=== PATIENT | male | born 1950 | race Caucasian/White ===

== ENCOUNTER 2017-01-12 03:29 | Emergency (ER) | payer MEDICARE, OTHER ==
[2017-01-12 03:43] VITALS: RESP 18
[2017-01-12] MEDS ORDERED: PANTOPRAZOLE 40 MG/10 ML VIAL IVP STA (03:54)
[2017-01-12] MEDS ORDERED: SODIUM CHLORIDE 0.9% 1,000 ML IV STA (03:54)
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
[2017-01-12 04:22] LABS: Basophils % (A) 1 %; CH 33.9; CHCM 34.1; Eosinophils # (A) 0.2 k/uL (0-0.7); Eosinophils % (A) 5 %; HCT 43.4 % (39.0-53.0); HDW 2.69; HGB 14.4 gm/dL (13.0-17.5); Luc % (Auto) 2; Lymphocytes % (A) 23 %; MCH 33.1 pg (25.0-35.0); MCHC 33.1 g/dL (31.0-37.0); MCV 99.9 fL (80.0-100.0); Macrocytosis Slight; Mean Platelet Volume 7.5; Monocytes # (A) 0.2 k/uL (0-1.0); Monocytes % (A) 5 %; Neutrophils # (A) 2.9 k/uL (1.3-7.7); Neutrophils % (A) 65 %; RBC 4.34 m/uL (4.30-5.90); RDW 14.4 % (11.5-15.5); WBC 4.5 k/uL (3.8-10.6); WBC (Perox) 4.51
[2017-01-12 04:32] LABS: Calcium 8.9 mg/dL (8.4-10.2); Potassium 5.7 mmol/L (3.5-5.1); Total Bilirubin 0.9 mg/dL (0.2-1.3); Total Protein 7.1 g/dL (6.3-8.2)
[2017-01-12 04:34] LABS: Partial Thromboplastin Time 24.1 sec (22.0-30.0); Prothrombin Time 10.4 sec (9.0-12.0)
[2017-01-12 04:41] LABS: Creatine Kinase 62 U/L (55-170)
--- NOTE | 2017-01-12 04:43 | XR ---
EXAMINATION TYPE: XR chest 1V portable DATE OF EXAM: 01/12/2017 4:27 AM COMPARISON: NONE HISTORY: History of GI bleed. TECHNIQUE: Single frontal view of the chest is obtained. FINDINGS: There is no focal air space opacity, pleural effusion, or pneumothorax seen. There is sugg estion of mild cardiomegaly. The osseous structures are intact. IMPRESSION: 1. No active lung infiltrates. 2. Cardiomegaly.
[2017-01-12 04:55] LABS: Creatine Kinase MB 1.9 ng/mL (0.0-2.4); Troponin I <0.012 ng/mL (0.000-0.034)
[2017-01-12 05:24] VITALS: BP 132/82; PULSE 60; TEMP 97.7
== END 2017-01-12 05:24 | disposition home or self-care (01) ==
LOC: EC 03:29
DX: R19.5 Other fecal abnormalities (principal); K21.9 Gastro-esophageal reflux disease without esophagitis; E07.9 Disorder of thyroid, unspecified; M10.9 Gout, unspecified; N40.0 Benign prostatic hyperplasia without lower urinary tract symptoms; F31.9 Bipolar disorder, unspecified; F41.9 Anxiety disorder, unspecified; R29.90 Unspecified symptoms and signs involving the nervous system; E66.9 Obesity, unspecified; Z98.84 Bariatric surgery status; Z79.899 Other long term (current) drug therapy
CPT/HCPCS: 36415; 93005; 80053; 82550; 82553; 84484; 85025; 85610; 85730; 82272; 71010; 99285; 96374; 96361; C9113

== ENCOUNTER 2017-03-13 18:27 | Emergency (ER) | payer MEDICARE, OTHER ==
[2017-03-13 18:34] VITALS: RESP 18
[2017-03-13] MEDS ORDERED: MORPHINE SULFATE 10 MG/ML SYRINGE IVP STA (19:13)
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
--- NOTE | 2017-03-13 19:46 | XR ---
EXAMINATION TYPE: XR knee limited LT DATE OF EXAM: 03/13/2017 7:35 PM COMPARISON: 08/31/2014 HISTORY: Pain TECHNIQUE: 2 views FINDINGS: There is a right knee prosthesis. There appears to be a supracondylar or transcondylar frac ture of the distal femur at the prosthesis. Exam is limited significantly by the positioning. IMPRESSION: There is a transcondylar fracture of the distal femur that is new and acute compared to l ast exam..
[2017-03-13] MEDS ORDERED: MORPHINE SULFATE 10 MG/ML SYRINGE IM STA (21:35)
[2017-03-13] MEDS ORDERED: HYDROmorphone 1 MG/ML 1 ML SYRINGE IM STA (23:25)
[2017-03-13 23:27] VITALS: BP 188/82; PULSE 77; TEMP 98.5
== END 2017-03-13 23:39 | disposition other institution (70) ==
LOC: EC 18:27
DX: S72.402A Unspecified fracture of lower end of left femur, initial encounter for closed fracture (principal); T84.89XA Other specified complication of internal orthopedic prosthetic devices, implants and grafts, initial encounter; I48.91 Unspecified atrial fibrillation; K21.9 Gastro-esophageal reflux disease without esophagitis; M19.90 Unspecified osteoarthritis, unspecified site; E07.9 Disorder of thyroid, unspecified; N40.0 Benign prostatic hyperplasia without lower urinary tract symptoms; M10.9 Gout, unspecified; F31.9 Bipolar disorder, unspecified; F41.9 Anxiety disorder, unspecified; Z79.899 Other long term (current) drug therapy; Z98.890 Other specified postprocedural states; W05.0XXA Fall from non-moving wheelchair, initial encounter
CPT/HCPCS: 99285; 96374; 96372 ×2; 73560; J2270; J1170

== ENCOUNTER 2017-03-20 12:44 | Emergency (ER) | payer MEDICARE, OTHER ==
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
[2017-03-20 15:42] LABS: Basophils % (A) 1 %; CH 33.2; CHCM 34.4; Eosinophils # (A) 0.3 k/uL (0-0.7); Eosinophils % (A) 6 %; HCT 31.9 % (39.0-53.0); HDW 3.33; HGB 10.8 gm/dL (13.0-17.5); Luc # (Auto) 0.09; Luc % (Auto) 2; Lymphocytes # (A) 0.7 k/uL (1.0-4.8); Lymphocytes % (A) 14 %; MCH 32.8 pg (25.0-35.0); MCHC 33.8 g/dL (31.0-37.0); MCV 97.2 fL (80.0-100.0); Mean Platelet Volume 7.6; Monocytes # (A) 0.4 k/uL (0-1.0); Monocytes % (A) 7 %; Neutrophils # (A) 3.3 k/uL (1.3-7.7); Neutrophils % (A) 70 %; RBC 3.29 m/uL (4.30-5.90); RDW 14.6 % (11.5-15.5); WBC 4.7 k/uL (3.8-10.6); WBC (Perox) 4.96
[2017-03-20 15:48] LABS: Calcium 8.8 mg/dL (8.4-10.2); Potassium 4.6 mmol/L (3.5-5.1); Total Bilirubin 1.1 mg/dL (0.2-1.3); Total Protein 6.8 g/dL (6.3-8.2)
[2017-03-20] MEDS ORDERED: HYDROmorphone 1 MG/ML 1 ML SYRINGE IVP STA (15:56)
[2017-03-20 17:10] VITALS: BP 123/65; PULSE 77; RESP 18; TEMP 96.9
== END 2017-03-20 17:07 | disposition short-term general hospital (02) ==
LOC: EC 12:44
DX: M25.552 Pain in left hip (principal); G89.29 Other chronic pain; M97.12XD Periprosthetic fracture around internal prosthetic left knee joint, subsequent encounter; E07.9 Disorder of thyroid, unspecified; M10.9 Gout, unspecified; F31.9 Bipolar disorder, unspecified; K21.9 Gastro-esophageal reflux disease without esophagitis; Z79.899 Other long term (current) drug therapy
CPT/HCPCS: 99285; 96374; 36415; 80053; 85025; 87040; J1170

== ENCOUNTER → 2017-04-20 | Outpatient (CLI) | payer MEDICARE, OTHER | END | disposition home or self-care (01) | LOC: RADCTMAIN 12:26 | PROVIDERS: ATTEND Otolaryngology | DX: Z01.812 Encounter for preprocedural laboratory examination (principal); M54.2 Cervicalgia; J38.01 Paralysis of vocal cords and larynx, unilateral | CPT/HCPCS: 82565; 84520 ==

== ENCOUNTER → 2017-05-01 | Outpatient (CLI) | payer MEDICARE, OTHER | END | disposition home or self-care (01) | LOC: RADCTMAIN 11:04 | PROVIDERS: ATTEND Otolaryngology | DX: Z53.9 Procedure and treatment not carried out, unspecified reason (principal) | CPT/HCPCS: 82565; 84520 ==

== ENCOUNTER → 2017-05-23 | Outpatient (CLI) | payer MEDICARE, OTHER ==
[2017-05-23 10:12] LABS: Anisocytosis Slight; CH 32.7; CHCM 33.3; HCT 39.4 % (39.0-53.0); HDW 2.83; MCH 32.6 pg (25.0-35.0); MCV 98.7 fL (80.0-100.0); Macrocytosis Slight; Mean Platelet Volume 7.3; RDW 16.4 % (11.5-15.5); WBC 4.3 k/uL (3.8-10.6)
[2017-05-23 10:28] LABS: Calcium 8.7 mg/dL (8.4-10.2); Phosphorous 3.9 mg/dL (2.5-4.5); Total Bilirubin 0.7 mg/dL (0.2-1.3); Total Protein 6.9 g/dL (6.3-8.2)
[2017-05-23 10:37] LABS: Appearance,Urine Clear (Clear); Bilirubin,Urine Negative (Negative); Glucose,Urine (UA) Negative (Negative); Ketones,Urine Negative (Negative); Leukocyte Esterase,Urine Negative (Negative); Nitrite,Urine Negative (Negative); Protein,Urine Trace (Negative); Specific Gravity,Urine 1.008 (1.001-1.035); UA Billing (MACRO vs. MICRO) CHEM; Urobilinogen,Urine <2.0 mg/dL (<2.0)
== END | disposition home or self-care (01) ==
LOC: LABWHC1 09:38
PROVIDERS: ATTEND Internal Medicine Nephrology
DX: D64.9 Anemia, unspecified (principal); N39.0 Urinary tract infection, site not specified; N18.3 Chronic kidney disease, stage 3 (moderate); E83.39 Other disorders of phosphorus metabolism
CPT/HCPCS: 36415; 80053; 81003; 84100; 85027

== ENCOUNTER → 2017-06-07 | Outpatient (CLI) | payer MEDICARE, OTHER ==
--- NOTE | 2017-06-07 15:37 | US ---
EXAMINATION TYPE: US kidneys/renal and bladder DATE OF EXAM: 06/07/2017 COMPARISON: CT abdomen and pelvis March 21, 2015 CLINICAL HISTORY: N18.3 CKD. CKD, abnormal renal function EXAM MEASUREMENTS: Right Kidney: 10.7 x 5.2 x 4.3 cm Left Kidney: 10.9 x 5.3 x 5.4 cm Severely, morbidly obese pt, difficult to visualize Right Kidney: Limited visualization/ No hydro could be appreciated Left Kidney: No evidence of hydro, appeared wnl Bladder: Pt unable to hold urine in bladder, voided just prior to exam, unable to evaluate Exam suboptimal secondary to patient's large body habitus. Limited images right kidney show no gross hydronephrosis. Left kidney is better utilized without hydronephrosis or concerning mass. Bladder can not be evaluated as is collapsed, patient voided just prior to ultrasound. IMPRESSION: Suboptimal study without gross hydronephrosis identified bilaterally.
== END ==
LOC: RADUSWWP 15:05
PROVIDERS: ATTEND Internal Medicine
DX: N18.3 Chronic kidney disease, stage 3 (moderate) (principal)
CPT/HCPCS: 76770

== ENCOUNTER → 2017-07-13 | Outpatient (CLI) | payer MEDICARE, OTHER ==
[2017-07-13 09:33] LABS: Appearance,Urine Clear (Clear); Bilirubin,Urine Negative (Negative); Glucose,Urine (UA) Negative (Negative); Ketones,Urine Negative (Negative); Leukocyte Esterase,Urine Negative (Negative); Nitrite,Urine Negative (Negative); Protein,Urine Trace (Negative); Specific Gravity,Urine 1.006 (1.001-1.035); UA Billing (MACRO vs. MICRO) CHEM; Urobilinogen,Urine <2.0 mg/dL (<2.0)
[2017-07-13 09:56] LABS: CH 32.7; CHCM 33.1; HCT 41.8 % (39.0-53.0); HDW 2.88; HGB 13.8 gm/dL (13.0-17.5); MCH 32.8 pg (25.0-35.0); MCV 99.2 fL (80.0-100.0); Macrocytosis Slight; Mean Platelet Volume 7.5; RBC 4.22 m/uL (4.30-5.90); RDW 15.5 % (11.5-15.5); WBC 4.5 k/uL (3.8-10.6)
[2017-07-13 10:24] LABS: Calcium 8.8 mg/dL (8.4-10.2); Magnesium 1.7 mg/dL (1.6-2.3); Phosphorous 4.2 mg/dL (2.5-4.5); Potassium 5.1 mmol/L (3.5-5.1); Total Bilirubin 0.6 mg/dL (0.2-1.3); Total Protein 6.6 g/dL (6.3-8.2); Uric Acid 4.7 mg/dL (3.5-8.5)
[2017-07-13 10:33] LABS: % Iron Saturation 34.2 % (20-50)
== END | disposition home or self-care (01) ==
LOC: LABWHC1 08:53
PROVIDERS: ATTEND Internal Medicine
DX: N18.3 Chronic kidney disease, stage 3 (moderate) (principal); D64.9 Anemia, unspecified; N39.0 Urinary tract infection, site not specified; E21.3 Hyperparathyroidism, unspecified; E55.9 Vitamin D deficiency, unspecified; M10.9 Gout, unspecified; R80.9 Proteinuria, unspecified
CPT/HCPCS: 36415; 80053; 81003; 82306; 82570; 82728; 83540; 83550; 83735; 83970; 84100; 84156; 84550; 85027

== ENCOUNTER 2017-08-03 19:00 | Emergency (ER) | payer MEDICARE, OTHER ==
[2017-08-03] MEDS ORDERED: HYDROcodone/APAP 5-325MG 1 EACH TAB PO STA (19:20)
--- NOTE | 2017-08-03 19:55 | XR ---
EXAMINATION TYPE: XR ankle complete bilateral DATE OF EXAM: 08/03/2017 COMPARISON: NONE HISTORY: Pain TECHNIQUE: 6 views FINDINGS: Ankle mortise is intact. I see no fracture nor dislocation. Joint spaces are fairly normal. There are calcaneal spurs bilaterally. IMPRESSION: No acute abnormality of the left and right ankle.
--- NOTE | 2017-08-03 19:55 | XR ---
EXAMINATION TYPE: XR foot complete bilateral DATE OF EXAM: 08/03/2017 COMPARISON: NONE HISTORY: Foot pain TECHNIQUE: 6 views FINDINGS: Metatarsals are intact. There is multiple bilateral hammertoe deformity. There are mild sanam ntar and Achilles calcaneal spurs. There is bilateral soft tissue swelling of the forefoot. I see no fracture. IMPRESSION: Soft tissue swelling. Multiple hammer toe deformity. No fracture seen.
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
[2017-08-03] MEDS ORDERED: MORPHINE SULFATE 10 MG/ML SYRINGE IM STA (20:13)
--- NOTE | 2017-08-03 20:50 | US ---
EXAMINATION TYPE: US venous doppler duplex LE LT DATE OF EXAM: 08/03/2017 8:36 PM COMPARISON: NONE CLINICAL HISTORY: Pain. Pain and edema left leg. Injury left lower leg. Bruising left lower leg and f oot SIDE PERFORMED: left TECHNIQUE: The lower extremity deep venous system is examined utilizing real time linear array sonog jose with graded compression, doppler sonography and color-flow sonography. VESSELS IMAGED: External Iliac Vein (EIV) Common Femoral Vein Deep Femoral Vein Greater Saphenous Vein * Femoral Vein Popliteal Vein Small Saphenous Vein * Proximal Calf Veins (* superficial vessels) Left Leg: No evidence of DVT. Complex anechoic area left mid calf within area of bruising = 3.6 x 0. 6 x 1.9cm IMPRESSION: No evidence of deep venous thrombosis. Complex elongated subcutaneous fluid collection could be area of hematoma or seroma in the area of br uising in the mid calf.
[2017-08-03 21:30] VITALS: BP 122/60; PULSE 71; RESP 18; TEMP 98.2
== END 2017-08-03 21:29 | disposition home or self-care (01) ==
LOC: EC 19:00
DX: S80.12XA Contusion of left lower leg, initial encounter (principal); M79.89 Other specified soft tissue disorders; E07.9 Disorder of thyroid, unspecified; K21.9 Gastro-esophageal reflux disease without esophagitis; M10.9 Gout, unspecified; N40.0 Benign prostatic hyperplasia without lower urinary tract symptoms; F31.9 Bipolar disorder, unspecified; F41.9 Anxiety disorder, unspecified; E66.9 Obesity, unspecified; Z96.653 Presence of artificial knee joint, bilateral; Z68.43 Body mass index [BMI] 50.0-59.9, adult; Z79.899 Other long term (current) drug therapy; W01.198A Fall on same level from slipping, tripping and stumbling with subsequent striking against other object, initial encounter; Y93.89 Activity, other specified
CPT/HCPCS: 99284; 96372; 73610; 73630; 93971; J2270

== ENCOUNTER → 2017-08-29 | Outpatient (CLI) | payer MEDICARE, OTHER ==
--- NOTE | 2017-08-29 14:58 | XR ---
Abdomen HISTORY: Pain Frontal view of the abdomen submitted on 3 images No recent exam available for correlation, correlation to CT abdomen pelvis dated 03/21/2015 Postop change noted to the left hip. Metallic foreign bodies are also noted at the left hip. Vascular calcifications are noted within the pelvis. There is retained fecal debris present within the colon. Question some small bowel loop distention, colonic distention. No pneumoperitoneum. IMPRESSION: Exam is somewhat limited by patient body habitus. Correlate for possible fecal stasis, jose guadalupe wel obstruction. A Yellow message has been communicated to Olga Owens MD via the [employer] system on 08/29/2017 2:55 PM, Message ID [phone].
== END ==
LOC: RADXRMAIN 13:40
PROVIDERS: ATTEND Internal Medicine
DX: R10.9 Unspecified abdominal pain (principal)
CPT/HCPCS: 74000

== ENCOUNTER 2017-09-02 21:06 | Emergency (ER) | payer MEDICARE, OTHER ==
[2017-09-02 21:39] VITALS: RESP 18
[2017-09-02] MEDS ORDERED: SODIUM CHLORIDE 0.9% 500 ML IV STA ×2 (21:55→23:33)
[2017-09-02] MEDS ORDERED: MORPHINE SULFATE 4 MG/ML SYRINGE IV STA (21:55)
[2017-09-02] MEDS ORDERED: SODIUM CHLORIDE 0.9% 1,000 ML IV STA (21:55)
[2017-09-02] MEDS ORDERED: PANTOPRAZOLE 40 MG/10 ML VIAL IVP STA (21:55)
[2017-09-02] MEDS ORDERED: ONDANSETRON 4 MG/2 ML VIAL IVP STA (21:55)
[2017-09-02] MEDS ORDERED: RX INFO: IV CONTRAST WAS GIVEN 1 EACH MISC MISCELLANE PRN (21:56)
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
[2017-09-02 22:21] LABS: Basophils # (A) 0.1 k/uL (0-0.2); Basophils % (A) 1 %; CH 33.6; CHCM 32.8; Eosinophils # (A) 0.4 k/uL (0-0.7); Eosinophils % (A) 6 %; HCT 40.9 % (39.0-53.0); HGB 13.3 gm/dL (13.0-17.5); Luc # (Auto) 0.13; Luc % (Auto) 2; Lymphocytes % (A) 13 %; MCH 33.6 pg (25.0-35.0); MCHC 32.6 g/dL (31.0-37.0); Macrocytosis Slight; Mean Platelet Volume 7.6; Monocytes # (A) 0.3 k/uL (0-1.0); Monocytes % (A) 5 %; Neutrophils # (A) 5.2 k/uL (1.3-7.7); Neutrophils % (A) 74 %; RBC 3.97 m/uL (4.30-5.90); RDW 14.5 % (11.5-15.5); WBC 7.1 k/uL (3.8-10.6); WBC (Perox) 7.07
[2017-09-02 22:30] LABS: Partial Thromboplastin Time 23.7 sec (22.0-30.0); Prothrombin Time 9.8 sec (9.0-12.0)
[2017-09-02 22:37] LABS: Calcium 9.2 mg/dL (8.4-10.2); Creatine Kinase 34 U/L (55-170); Total Bilirubin 0.6 mg/dL (0.2-1.3); Total Protein 6.7 g/dL (6.3-8.2)
[2017-09-02 22:49] LABS: Creatine Kinase MB 0.6 ng/mL (0.0-2.4); Troponin I <0.012 ng/mL (0.000-0.034)
[2017-09-02 22:58] LABS: Appearance,Urine Clear (Clear); Bilirubin,Urine Negative (Negative); Glucose,Urine (UA) Negative (Negative); Ketones,Urine Negative (Negative); Leukocyte Esterase,Urine Negative (Negative); Mucus,Urine Rare /hpf; Nitrite,Urine Negative (Negative); Particle Count 732; Protein,Urine 1+ (Negative); RBC,Urine 1 /hpf (0-5); Specific Gravity,Urine 1.011 (1.001-1.035); UA Billing (MACRO vs. MICRO) MICRO; Urobilinogen,Urine <2.0 mg/dL (<2.0); WBC,Urine 1 /hpf (0-5)
--- NOTE | 2017-09-02 23:32 | CT ---
EXAMINATION TYPE: CT abdomen pelvis w con DATE OF EXAM: 09/02/2017 COMPARISON: 03/21/2015 HISTORY: Abd pain CT DLP: 4077.00 mGycm Automated exposure control for dose reduction was used. TECHNIQUE: Helical acquisition of images was performed from the lung bases through the pelvis. CONTRAST: Performed without Oral Contrast and with IV Contrast, patient injected with 80 mL of Visipaque 320. FINDINGS: There is small right pleural effusion. There is patchy infiltrate and atelectasis at the lung bases. This is worse on the right side. Heart is enlarged. There are clips at the gastric fundus. Liver shows no focal defect. Spleen appears normal. There is n o pancreatic mass. Bile ducts are not dilated. Kidneys show satisfactory contrast opacification. There is no hydronephrosis. There is no adrenal mas s. There is a 2 cm cortical cyst on the medial left kidney. There is a left hip prosthesis. There is metal artifact which obscures the detail in the pelvis. Blad jayy appears to distends smoothly. I see no pelvic mass. There is no intestinal wall thickening. I see no dilated loops. I see no bony destructive process. There is a small ventral hernia that contains b owel in the subcutaneous tissues over the lower midline abdomen. There is no sign of a bowel obstruct ion. There is atherosclerotic vascular calcification. IMPRESSION: THERE IS INCREASING INFILTRATE AND ATELECTASIS AT THE LUNG BASES COMPARED TO OLD EXAM. THERE IS INCRE ASED PLEURAL THICKENING. THERE IS A NEW SMALL RIGHT PLEURAL EFFUSION. SMALL VENTRAL HERNIA. THIS IS INCREASED COMPARED TO OLD EXAM. NO EVIDENCE OF A BOWEL OBSTRUCTION. THE RE IS CHOLECYSTECTOMY SINCE LAST EXAM. THERE IS CLEARING OF THE INTESTINAL ILEUS COMPARED TO OLD EXAM . GASTRIC SURGERY NOTED.
[2017-09-02] MEDS ORDERED: MAGNESIUM CITRATE 296 ML BOTTLE PO ONE (23:33)
[2017-09-02] MEDS ORDERED: SENNOSIDES-DOCUSATE SODIUM 1 EACH TAB PO STA (23:33)
[2017-09-02] MEDS ORDERED: GLYCERIN ADULT SUPPOSITORY 1 EACH RECTAL STA (23:33)
[2017-09-03 00:11] VITALS: BP 120/62; PULSE 62; TEMP 97.2
== END 2017-09-03 00:14 | disposition home or self-care (01) ==
LOC: EC 21:06
DX: K59.00 Constipation, unspecified (principal); R10.9 Unspecified abdominal pain; E07.9 Disorder of thyroid, unspecified; M19.90 Unspecified osteoarthritis, unspecified site; K21.9 Gastro-esophageal reflux disease without esophagitis; F41.9 Anxiety disorder, unspecified; F32.9 Major depressive disorder, single episode, unspecified; Z90.49 Acquired absence of other specified parts of digestive tract; Z98.84 Bariatric surgery status; Z79.899 Other long term (current) drug therapy
CPT/HCPCS: 99285; 96374 ×2; 96375 ×3; 96361 ×2; 99284; 36415; 80053; 82150; 82550; 82553; 83690; 84484; 85025; 85610; 85730; 81001; 87086; 74177; J2270; Q9967; J2405; C9113

== ENCOUNTER → 2017-10-16 | Outpatient (CLI) | payer MEDICARE ==
[2017-10-16 15:23] LABS: CH 32.5; HCT 42.4 % (39.0-53.0); HDW 2.74; HGB 13.5 gm/dL (13.0-17.5); MCH 32.5 pg (25.0-35.0); MCHC 31.8 g/dL (31.0-37.0); MCV 102.1 fL (80.0-100.0); Macrocytosis Slight; Mean Platelet Volume 7.7; RBC 4.15 m/uL (4.30-5.90); WBC 7.1 k/uL (3.8-10.6)
[2017-10-16 15:41] LABS: Calcium 9.3 mg/dL (8.4-10.2); Magnesium 2.4 mg/dL (1.6-2.3); Phosphorus 4.3 mg/dL (2.5-4.5); Uric Acid 4.7 mg/dL (3.5-8.5)
[2017-10-16 19:59] LABS: Iron Saturation 12.96 (15.00-50.00); Iron(FE) 28 ug/dL (65-175); Total Iron Binding Capacity 216 ug/dL (228-460)
[2017-10-16 20:44] LABS: ANA w/Reflex to Titer NEGATIVE (NEGATIVE)
[2017-10-17 11:26] LABS: Free Kappa Lt Chain Qnt, Serum 9.71 mg/dL (0.33-1.94)
[2017-10-17 14:09] LABS: C-ANCA <1:20 Titer (<1:20); P-ANCA <1:20 Titer (<1:20)
== END | disposition home or self-care (01) ==
LOC: LABWHC1 14:43
PROVIDERS: ATTEND Nurse Practitioner Family
DX: E21.3 Hyperparathyroidism, unspecified (principal); R80.9 Proteinuria, unspecified; N18.3 Chronic kidney disease, stage 3 (moderate); N39.0 Urinary tract infection, site not specified; D63.1 Anemia in chronic kidney disease; M10.9 Gout, unspecified
CPT/HCPCS: 36415; 80048; 82306; 82728; 83516; 83540; 83550; 83735; 83883; 83970; 84100; 84550; 85027; 86038; 86160; 86162; 86225; 86255; 86334

== ENCOUNTER → 2018-07-08 | Outpatient (CLI) | payer MEDICARE, OTHER ==
[2018-07-08 12:40] LABS: Appearance,Urine Clear (Clear); Bilirubin,Urine Negative (Negative); Blood,Urine Negative (Negative); Color,Urine Yellow; Glucose,Urine (UA) Negative (Negative); Ketones,Urine Negative (Negative); Leukocyte Esterase,Urine Negative (Negative); Nitrite,Urine Negative (Negative); Protein,Urine Trace (Negative); Specific Gravity,Urine 1.008 (1.001-1.035); Urobilinogen,Urine <2.0 mg/dL (<2.0)
[2018-07-08 12:41] LABS: HCT 42.5 % (39.0-53.0); HGB 13.8 gm/dL (13.0-17.5); MCHC 32.5 g/dL (31.0-37.0); MCV 95.5 fL (80.0-100.0); Platelet Count 190 k/uL (150-450); RBC 4.45 m/uL (4.30-5.90); RDW 15.3 % (11.5-15.5); WBC 5.2 k/uL (3.8-10.6)
[2018-07-08 12:54] LABS: Calcium 8.9 mg/dL (8.4-10.2); Magnesium 2.1 mg/dL (1.6-2.3); Phosphorus 3.3 mg/dL (2.5-4.5); Potassium 4.7 mmol/L (3.5-5.1); Uric Acid 4.4 mg/dL (3.5-8.5)
[2018-07-08 13:09] LABS: Creatinine,Urine Random 74.2 mg/dL
[2018-07-08 19:01] LABS: Iron Saturation 13.03 (15.00-50.00)
[2018-07-08 19:10] LABS: Parathyroid Hormone Intact 142.3 pg/mL (14.0-72.0); Vitamin D 25 Hydroxy 69.5 ng/mL (30.0-100.0)
[2018-07-08 21:02] LABS: Hemoglobin A1C 5.1 % (4.0-6.0)
== END | disposition home or self-care (01) ==
LOC: LABWHC1 11:31
PROVIDERS: ATTEND Nurse Practitioner Family
DX: E21.3 Hyperparathyroidism, unspecified (principal); D63.1 Anemia in chronic kidney disease; N18.3 Chronic kidney disease, stage 3 (moderate); R73.9 Hyperglycemia, unspecified; M10.9 Gout, unspecified; R80.9 Proteinuria, unspecified; N39.0 Urinary tract infection, site not specified
CPT/HCPCS: 36415; 80048; 81003; 82306; 82570; 82728; 83036; 83540; 83550; 83735; 83970; 84100; 84156; 84550; 85027

== ENCOUNTER → 2018-08-13 | Outpatient (CLI) | payer MEDICARE, OTHER ==
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
== END | disposition home or self-care (01) ==
LOC: RADXRMAIN 14:06
PROVIDERS: ATTEND Physical Medicine & Rehabilitation
DX: Z01.818 Encounter for other preprocedural examination (principal); Z98.890 Other specified postprocedural states; Z87.828 Personal history of other (healed) physical injury and trauma
CPT/HCPCS: 72170

== ENCOUNTER → 2018-08-21 | Outpatient (CLI) | payer MEDICARE, OTHER ==
--- NOTE | 2018-08-22 12:54 | CT ---
EXAMINATION TYPE: CT lumbar spine wo con DATE OF EXAM: 08/21/2018 COMPARISON: None HISTORY: spinal stenosis/lower back pain CT DLP: 1909.2 mGycm CONTRAST: None TECHNIQUE: CT of the lumbar spine is performed on a spiral scan at 3 mm thick sections. Reconstructed images are performed in the coronal and sagittal planes. FINDINGS: Degenerative disc changes are present throughout the visualized lower thoracic and lumbar s pine. Schmorl's node formation at superior endplate of L3 is present. Lower thoracic levels within th e [id number] and mild degenerative disc changes. No significant disc bulging or focal disc herniat ions are evident. T12-L1: No focal disc herniation or significant disc bulge is evident. No spinal canal stenosis or neural foraminal stenosis is present. L1-L2: No focal disc herniation or significant disc bulge is evident. No spinal canal stenosis or n eural foraminal stenosis is present L2-L3: Mild disc bulging is anterior thecal sac flattening. No AP spinal canal stenosis or neural for aminal stenosis is present. L3-L4: Mild disc bulge has anterior thecal sac flattening. No AP spinal canal stenosis or neural fora lobo stenosis is present. L4-L5: Mild disc bulging is anterior thecal sac flattening. Facet hypertrophy is present. No spinal c anal stenosis is present. Posterior lateral thecal sac compression with ligamentum flavum laxity is p resent. Right lateral recess narrowing is present. Correlate with the radicular symptoms. L5-S1: Endplate spurring has moderate anterior thecal sac compression. No AP spinal canal stenosis pr esent. Facet hypertrophy is present. Degenerative disc changes with loss of disc height are present. Vertebral alignment appears normal. IMPRESSION: 1. Degenerative disc changes throughout the visualized thoracic and lumbar spine. 2. Disc bulging and some facet hypertrophy is present L4-5 with narrowing without stenosis. 3. Additional milder endplate spurs and disc bulges are present without stenosis
== END | disposition home or self-care (01) ==
LOC: RADCTMAIN 19:07
PROVIDERS: ATTEND Physical Medicine & Rehabilitation
DX: M48.061 Spinal stenosis, lumbar region without neurogenic claudication (principal); M51.26 Other intervertebral disc displacement, lumbar region; M47.815 Spondylosis without myelopathy or radiculopathy, thoracolumbar region
CPT/HCPCS: 72131

== ENCOUNTER 2018-09-10 12:38 | Emergency (ER) | payer MEDICARE, OTHER ==
[2018-09-10 12:56] VITALS: RESP 20
[2018-09-10] MEDS ORDERED: HYDROcodone/APAP 10-325MG 1 EACH TAB PO ONE (13:11)
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
--- NOTE | 2018-09-10 14:20 | XR ---
EXAMINATION TYPE: XR Hip LT and AP Pelvis DATE OF EXAM: 09/10/2018 COMPARISON: Prior pelvis 08/13/2018 HISTORY: Trauma and pain TECHNIQUE: A single AP view of the pelvis is obtained. Two views of the left hip are obtained. FINDINGS: There is no acute fracture/dislocation evident in the pelvis. The hip and sacroiliac join ts appear symmetric and unremarkable. The overlying soft tissue appears unremarkable. Two views of left hip show no acute fracture or dislocation. No focal lytic or sclerotic lesion seen in the proximal left femur. The overlying soft tissue is remarkable for multiple helically densitie s within the soft tissues as on prior exam, patient is status post left hip arthroplasty. Multiple va scular calcifications present within the pelvis. Degenerative disc changes in the visualized spine. IMPRESSION: There is no acute fracture or dislocation in the pelvis or left hip.
[2018-09-10] MEDS ORDERED: MORPHINE SULFATE 4 MG/ML SYRINGE IM STA (15:03)
[2018-09-10 15:51] VITALS: BP 152/70; PULSE 62; TEMP 67
== END 2018-09-10 15:40 | disposition home or self-care (01) ==
LOC: EC 12:38
DX: S76.012A Strain of muscle, fascia and tendon of left hip, initial encounter (principal); M25.562 Pain in left knee; K21.9 Gastro-esophageal reflux disease without esophagitis; F31.9 Bipolar disorder, unspecified; F41.9 Anxiety disorder, unspecified; Z99.3 Dependence on wheelchair; Z79.899 Other long term (current) drug therapy; Z87.891 Personal history of nicotine dependence; Z96.653 Presence of artificial knee joint, bilateral; Z96.649 Presence of unspecified artificial hip joint
CPT/HCPCS: 73502; 99284; 96372; J2270

== ENCOUNTER 2018-12-11 02:02 | Observation (INO) | payer MEDICARE, OTHER ==
[2018-12-11] MEDS ORDERED: MORPHINE SULFATE 4 MG/ML SYRINGE IV STA (02:13)
[2018-12-11] MEDS ORDERED: ASPIRIN 81 MG PO STA (02:13)
[2018-12-11] MEDS ORDERED: NITROGLYCERIN OINT 1 INCH/GM PACKET TOPICAL STA (02:13)
[2018-12-11] MEDS ORDERED: NALOXONE 0.4 MG/ML 1 ML VIAL IV PRN (02:23)
[2018-12-11 02:37] LABS: Basophils % (A) 1 %; Eosinophils # (A) 0.3 k/uL (0-0.7); Eosinophils % (A) 5 %; HCT 43.2 % (39.0-53.0); HGB 13.9 gm/dL (13.0-17.5); Lymphocytes # (A) 1.2 k/uL (1.0-4.8); Lymphocytes % (A) 21 %; MCH 31.2 pg (25.0-35.0); MCHC 32.1 g/dL (31.0-37.0); MCV 97.3 fL (80.0-100.0); Mean Platelet Volume 6.5; Monocytes # (A) 0.3 k/uL (0-1.0); Monocytes % (A) 6 %; Neutrophils # (A) 3.8 k/uL (1.3-7.7); Neutrophils % (A) 66 %; Platelet Count 168 k/uL (150-450); RBC 4.44 m/uL (4.30-5.90); RDW 14.1 % (11.5-15.5); WBC 5.8 k/uL (3.8-10.6)
--- NOTE | 2018-12-11 02:38 | XR ---
EXAMINATION TYPE: XR chest 2V DATE OF EXAM: 12/11/2018 COMPARISON: 01/12/2017 HISTORY: Chest pain TECHNIQUE: Frontal and lateral views of the chest are obtained. FINDINGS: There is no heart failure nor confluent pneumonic infiltrate. Costophrenic angles are fair ly clear. Thoracic aorta is atheromatous. Bony thorax is intact. IMPRESSION: No active cardiopulmonary disease. No change.
[2018-12-11 02:41] LABS: INR 0.9 (<1.2)
[2018-12-11 02:44] LABS: Albumin 3.6 g/dL (3.5-5.0); Calcium 8.7 mg/dL (8.4-10.2); Magnesium 1.8 mg/dL (1.6-2.3); Potassium 4.8 mmol/L (3.5-5.1); Total Bilirubin 0.8 mg/dL (0.2-1.3); Total Protein 6.9 g/dL (6.3-8.2)
[2018-12-11 02:45] LABS: Creatine Kinase 41 U/L (55-170)
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
[2018-12-11 02:59] LABS: Creatine Kinase MB 0.4 ng/mL (0.0-2.4); Troponin I <0.012 ng/mL (0.000-0.034)
[2018-12-11] MEDS ORDERED: CHOLECALCIFEROL 1,000 UNIT TAB PO SCH (09:00)
[2018-12-11] MEDS ORDERED: INFLUENZA VACCINE (6 MOS+) 60 MCG/0.5 ML SYRINGE IM ONE (10:13)
--- NOTE | 2018-12-11 11:34 | ECHOF ---
Referral Reason:new afib rvr MEASUREMENTS -------- HEIGHT: 172.7 cm WEIGHT: 140.6 kg BP: 114/83 RVIDd: 3.5 cm (< 3.3) IVSd: 1.6 cm (0.6 - 1.1) LVIDd: 3.8 cm (3.9 - 5.3) LVPWd: 1.6 cm (0.6 - 1.1) IVSs: 2.3 cm LVIDs: 2.7 cm LVPWs: 2.1 cm LA Diam: 3.7 cm (2.7 - 3.8) LAESV Index (A-L): 36.35 ml/m Ao Diam: 4.5 cm (2.0 - 3.7) AV Cusp: 2.7 cm (1.5 - 2.6) EPSS: 0.5 cm MV E Brian: 0.61 m/s MV DecT: 318 ms MV A Brian: 0.68 m/s MV E/A Ratio: 0.90 AR PHT: 710 ms MV EF SLOPE: 72.59 mm/s (70 - 150) MV EXCURSION: 1.62 cm (> 18.000) FINDINGS -------- Sinus rhythm. This was a technically difficult study with suboptimal views. The left ventricular size is normal. There is moderate concentric left ventricular hypertrophy. O verall left ventricular systolic function is normal with, an EF between 60 - 65 %. The right ventricle is mildly enlarged. LA is moderately dilated 34-39 ml/m2 The right atrium was not well visualized. 5 ml of Lumason was utilized for enhancement of images. There is mild aortic valve sclerosis. There is mild aortic regurgitation. Mild mitral regurgitation is present. The tricuspid valve appears structurally normal. Moderate pulmonic regurgitation. 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 Normal inferior vena cava with normal inspiratory collapse consistent with estimated right atrial pre ssure of 5 mmHg. There is no pericardial effusion. CONCLUSIONS -------- 1. Sinus rhythm. 2. This was a technically difficult study with suboptimal views. 3. The left ventricular size is normal. 4. There is moderate concentric left ventricular hypertrophy. 5. Overall left ventricular systolic function is normal with, an EF between 60 - 65 %. 6. The right ventricle is mildly enlarged. 7. LA is moderately dilated 34-39 ml/m2 8. The right atrium was not well visualized. 9. 5 ml of Lumason was utilized for enhancement of images. 10. There is mild aortic valve sclerosis. 11. There is mild aortic regurgitation. 12. Mild mitral regurgitation is present. 13. The tricuspid valve appears structurally normal. 14. Moderate pulmonic regurgitation. 15. 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 16. Normal inferior vena cava with normal inspiratory collapse consistent with estimated right atrial pressure of 5 mmHg. 17. There is no pericardial effusion. COIN BOX INSPECTOR: LINDA Bhakta
[2018-12-11] MEDS ORDERED: FAMOTIDINE 20 MG/2 ML VIAL IV SCH (11:45)
[2018-12-11] MEDS ORDERED: traMADol 50 MG TAB PO PRN (12:54)
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
[2018-12-11] MEDS: FAMOTIDINE 20 MG/2 ML VIAL IV SCH (13:10)
[2018-12-11 13:27] LABS: Creatine Kinase MB 0.4 ng/mL (0.0-2.4); Troponin I <0.012 ng/mL (0.000-0.034)
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
--- NOTE | 2018-12-11 16:39 | NM ---
EXAMINATION TYPE: NM pul vent and perfuse DATE OF EXAM: 12/11/2018 COMPARISON: NONE HISTORY: Short of breath TECHNIQUE: Utilizing inhalation of 66.6 mCi Tc 99m DTPA aerosol and intravenous injection of 5.2 mCi of Tc 99m MAA, ventilation and perfusion images are acquired post injection in multiple projections. FINDINGS: There is a matching segmental-sized defect in the posterior segment of the left upper lobe. There is a similar matching defect in the superior segment right lower lobe. There is no ventilation/perfusion mismatch. The remainder of exam is unremarkable.. IMPRESSION: Bilateral matching segmental defects. The chest x-ray shows no pulmonary consolidation in these areas . This could relate to airway disease. There is an intermediate probability of pulmonary embolism.
[2018-12-11] MEDS: GABAPENTIN 400 MG CAP PO SCH ×2 (17:50→23:53)
[2018-12-11] MEDS: HEPARIN SODIUM,PORCINE 5,000 UNIT/ML 1 ML VIAL SQ SCH (17:50)
[2018-12-11] MEDS: HYDROcodone/APAP 10-325MG 1 EACH TAB PO SCH (17:51)
[2018-12-11] MEDS: DIVALPROEX 250 MG TABLET.DR PO SCH (20:09)
[2018-12-11] MEDS ORDERED: TAMSULOSIN 0.4 MG CAP.ER.24H PO SCH (21:00)
[2018-12-11] MEDS ORDERED: OLANZapine 5 MG TAB PO SCH (21:00)
[2018-12-11] MEDS ORDERED: traZODone HCL 50 MG TAB PO SCH (21:00)
[2018-12-11] MEDS ORDERED: PRAMIPEXOLE 0.5 MG TAB PO SCH (21:00)
[2018-12-12] MEDS: HEPARIN SODIUM,PORCINE 5,000 UNIT/ML 1 ML VIAL SQ SCH ×3 (00:32→17:42)
[2018-12-12] MEDS: HYDROcodone/APAP 10-325MG 1 EACH TAB PO SCH ×3 (00:32→17:43)
[2018-12-12 04:41] LABS: Cholesterol 140 mg/dL (<200); HDL Cholesterol 40 mg/dL (40-60); LDL Cholesterol,Calculated 71 mg/dL (0-99); Triglycerides 144 mg/dL (<150)
[2018-12-12] MEDS ORDERED: LEVOTHYROXINE 100 MCG TAB PO SCH (06:30)
[2018-12-12] MEDS ORDERED: CAFFEINE CITRATE 60 MG/3 ML VIAL IV PRN (07:08)
[2018-12-12] MEDS ORDERED: REGADENOSON 0.4 MG/5 ML SYRINGE IV ONE (07:08)
--- NOTE | 2018-12-12 07:59 | PN ---
PROGRESS NOTE Mr. Lombardi is a 68-year-old male with no history of documented coronary artery disease who presented with symptoms of chest discomfort. He is feeling well at the time my evaluation. He has no dyspnea or chest discomfort. He denies any dizziness palpitation. He denies any nausea. On the monitor, he continues to be in sinus mechanism. He underwent an echocardiogram yesterday that showed a preserved ventricular size and systolic function with mild aortic and mitral regurgitation. He had a pulmonary ventilation perfusion scan that revealed intermediate probability of pulmonary embolism with matching defect. He continues to be at this time on aspirin once a day, calcium carbonate, vitamin D, Depakote, Lasix 40 mg daily, loratadine, tamsulosin, and tramadol. PHYSICAL EXAMINATION: Blood pressure 118/70 with a heart rate in the 60s. LUNGS: Clear. HEART: Regular rate and rhythm, S1, S2. No S3. No rub. ABDOMEN: Soft, nontender. EXTREMITIES: No edema. LAB DATA: Revealed troponin less than 0.012, LDL of 71. BUN and creatinine 27 and 1.8. IMPRESSION: 1. Chest discomfort of unclear etiology. No evidence to suggest acute ischemic heart disease. 2. Renal failure. 3. Obesity. 4. Hypothyroidism. RECOMMENDATION: Will proceed with a myocardial perfusion imaging. If there is no evidence of inducible ischemia, then no further cardiac workup will be needed. MMODL / IJN: [id number] /
[2018-12-12] MEDS ORDERED: DOBUTamine DRIP for NUC MED 500 MG in DEXTROSE/WATER 1 250ML.BAG IV ONE (08:02)
[2018-12-12] MEDS ORDERED: FLUoxetine HCL 20 MG CAP PO SCH (09:00)
[2018-12-12] MEDS ORDERED: FUROSEMIDE 40 MG TAB PO SCH (09:00)
[2018-12-12] MEDS ORDERED: CALCIUM CARBONATE 500 MG CHEWABLE PO SCH (09:00)
[2018-12-12] MEDS ORDERED: CHOLECALCIFEROL 1,000 UNIT TAB PO SCH (09:00)
[2018-12-12] MEDS ORDERED: ALLOPURINOL 300 MG TAB PO SCH (09:00)
[2018-12-12] MEDS ORDERED: ASPIRIN 81 MG PO SCH (09:00)
[2018-12-12] MEDS ORDERED: LORATADINE 10 MG TAB PO SCH (09:00)
[2018-12-12] MEDS: DIVALPROEX 250 MG TABLET.DR PO SCH (11:18)
[2018-12-12] MEDS: FAMOTIDINE 20 MG/2 ML VIAL IV SCH (11:19)
[2018-12-12] MEDS: GABAPENTIN 400 MG CAP PO SCH ×3 (11:20→17:43)
[2018-12-12] MEDS ORDERED: MULTIVITAMINS, THERA 1 EACH TAB PO SCH (12:00)
[2018-12-12 12:38] VITALS: RESP 18
--- NOTE | 2018-12-12 13:56 | US ---
EXAMINATION TYPE: US venous doppler duplex LE BI DATE OF EXAM: 12/12/2018 1:37 PM COMPARISON: NONE CLINICAL HISTORY: r/o DVT. Lower extremity edema SIDE PERFORMED: Bilateral TECHNIQUE: The lower extremity deep venous system is examined utilizing real time linear array sonog jose with graded compression, doppler sonography and color-flow sonography. VESSELS IMAGED: External Iliac Vein (EIV) Common Femoral Vein Deep Femoral Vein Greater Saphenous Vein * Femoral Vein Popliteal Vein Small Saphenous Vein * Proximal Calf Veins (* superficial vessels) Grayscale, color doppler, spectral doppler imaging performed of the deep veins of the lower extremiti es. There is normal flow, compressibility, vascular waveforms. Right Leg: Negative for DVT Left Leg: Negative for DVT Sub optimal exam overall d/t large size of patient's legs and inability to tolerate some compressions . IMPRESSION: Suboptimal exam due to patient body habitus and inability to tolerate compression howeve r there is no gross evidence of deep venous thrombosis within either lower extremity.
--- NOTE | 2018-12-12 14:56 | ECHOS ---
STRESS ECHOCARDIOGRAM INDICATIONS: Chest pain. BASELINE HEART RATE: 63 BASELINE BLOOD PRESSURE: 163/108 MAXIMUM HEART RATE: 132 MAXIMUM BLOOD PRESSURE: 124/76 85% MPHR: 128 100% MPHR: 150 MAXIMUM STAGE REACHED: IV TOTAL EXERCISE TIME: 12:16 CLINICAL INFORMATION: Baseline rhythm is sinus mechanism, normal axis, intervals, nonspecific ST-T wave changes. Baseline blood pressure 168/108 mmHg. Patient is given an infusion of dobutamine per protocol. Reaching a peak rate 132 beats per minute which is equal to 88% maximum predicted heart rate. Peak blood pressure 124/76 mmHg. Electrocardiograph monitoring revealed no evidence of diagnostic ischemic ST deviation. FINDINGS: Baseline echocardiogram revealed normal wall thickening motion. At peak exercise, there was normal wall motion augmentation with no hypokinesis or dyskinesis. CONCLUSION: 1. Normal electrocardiographic response to dobutamine infusion. 2. Normal stress echocardiogram with no evidence of stress-induced ischemia. MMODL / IJN: [id number] /
[2018-12-12 16:40] LABS: Glucose,Whole Blood 93 mg/dL (75-99)
[2018-12-12 16:41] VITALS: BP 108/73; PULSE 56; TEMP 97.7
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
[2018-12-14] MEDS ORDERED: ERGOCALCIFEROL 50,000 UNIT CAP PO SCH (09:00)
== END 2018-12-12 18:30 ==
LOC: EC 02:02 → 1SOBS 02:25 → 2ORMAIN 10:04 → 1SOBS 11:35
PROVIDERS: ADMIT Internal Medicine; ATTEND Internal Medicine
DX: R07.89 Other chest pain (principal); R79.89 Other specified abnormal findings of blood chemistry; N18.3 Chronic kidney disease, stage 3 (moderate); I48.91 Unspecified atrial fibrillation; M19.90 Unspecified osteoarthritis, unspecified site; E03.9 Hypothyroidism, unspecified; G82.20 Paraplegia, unspecified; Z74.01 Bed confinement status; N40.0 Benign prostatic hyperplasia without lower urinary tract symptoms; M10.9 Gout, unspecified; E66.01 Morbid (severe) obesity due to excess calories; Z68.42 Body mass index [BMI] 45.0-49.9, adult; K21.9 Gastro-esophageal reflux disease without esophagitis; R15.9 Full incontinence of feces; F31.9 Bipolar disorder, unspecified; F41.9 Anxiety disorder, unspecified; D64.9 Anemia, unspecified; R41.3 Other amnesia; I08.0 Rheumatic disorders of both mitral and aortic valves; G25.81 Restless legs syndrome; R60.0 Localized edema; R26.9 Unspecified abnormalities of gait and mobility; G89.29 Other chronic pain; M79.606 Pain in leg, unspecified; G62.9 Polyneuropathy, unspecified; H91.90 Unspecified hearing loss, unspecified ear; Z79.890 Hormone replacement therapy; Z79.899 Other long term (current) drug therapy; Z87.19 Personal history of other diseases of the digestive system; Z87.01 Personal history of pneumonia (recurrent); Z90.49 Acquired absence of other specified parts of digestive tract; Z98.84 Bariatric surgery status; Z96.653 Presence of artificial knee joint, bilateral; Z96.642 Presence of left artificial hip joint; Z87.828 Personal history of other (healed) physical injury and trauma; Z87.891 Personal history of nicotine dependence; Z83.3 Family history of diabetes mellitus; Z82.49 Family history of ischemic heart disease and other diseases of the circulatory system
CPT/HCPCS: 96372 ×2; 96375; 96376; 96374; 99285; 36415; 93005; 85379; 83880; 80061; 80053; 82550; 82553; 83735; 84484; 85025; 85610; 85730; 87502; 71046; 93970; 78582; G0378 ×2; C8929; C8930; A9540; A9567; J1250; J2270; J1644 ×2; Q9950; 93306; 93351

== ENCOUNTER 2018-12-16 06:31 | Observation (INO) | payer MEDICARE, OTHER ==
[2018-12-16] MEDS ORDERED: LIDOCAINE 5% PATCH TOPICAL STA (07:01)
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
[2018-12-16 07:13] LABS: Basophils % (A) 1 %; Eosinophils # (A) 0.3 k/uL (0-0.7); Eosinophils % (A) 5 %; HCT 43.5 % (39.0-53.0); HGB 14.2 gm/dL (13.0-17.5); Lymphocytes # (A) 1.1 k/uL (1.0-4.8); Lymphocytes % (A) 18 %; MCHC 32.8 g/dL (31.0-37.0); MCV 97.8 fL (80.0-100.0); Mean Platelet Volume 7.9; Monocytes # (A) 0.3 k/uL (0-1.0); Monocytes % (A) 5 %; Neutrophils # (A) 4.4 k/uL (1.3-7.7); Neutrophils % (A) 70 %; Platelet Count 177 k/uL (150-450); Poikilocytosis Slight; RBC 4.44 m/uL (4.30-5.90); WBC 6.3 k/uL (3.8-10.6)
--- NOTE | 2018-12-16 07:19 | XR ---
EXAMINATION TYPE: XR chest 2V DATE OF EXAM: 12/16/2018 COMPARISON: 12/11/2018 HISTORY: 68-year-old male with chest pain TECHNIQUE: AP and lateral views FINDINGS: The heart is mildly enlarged. Slight rightward patient rotation alters a normal cardiac mediastinal c ontours. Mild diffuse interstitial prominence. No sizable effusion seen on the frontal view. IMPRESSION: Cardiomegaly and interstitial changes. Correlate for possible mild pulmonary vascular congestion.
[2018-12-16 07:44] LABS: INR 0.9 (<1.2); Prothrombin Time 9.7 sec (9.0-12.0)
[2018-12-16 07:45] LABS: Partial Thromboplastin Time 24.4 sec (22.0-30.0)
[2018-12-16 07:57] LABS: Albumin 3.5 g/dL (3.5-5.0); Calcium 8.5 mg/dL (8.4-10.2); Total Bilirubin 0.7 mg/dL (0.2-1.3); Total Protein 6.5 g/dL (6.3-8.2)
[2018-12-16 08:15] LABS: Creatine Kinase 68 U/L (55-170)
[2018-12-16 08:26] LABS: Creatine Kinase MB 0.7 ng/mL (0.0-2.4); Troponin I <0.012 ng/mL (0.000-0.034)
[2018-12-16] MEDS ORDERED: FUROSEMIDE 10 MG/ML 4 ML VIAL IV STA (10:52)
[2018-12-16] MEDS ORDERED: HEPARIN SODIUM,PORCINE 10,000 UNIT/ML 1 ML VIAL IV ONE (11:11)
[2018-12-16] MEDS: HEPARIN SOD,PORK IN 0.45% NACL 25,000 UNIT in 0.45% NACL 1 250ML.BAG IV SCH ×2 (11:29→20:17)
--- NOTE | 2018-12-16 12:24 | NM ---
EXAMINATION TYPE: NM pul perfusion DATE OF EXAM: 12/16/2018 COMPARISON: 12/11/2018 HISTORY: Shortness of breath Following administration of 5.1 mCi Tc 99m MAA. Images obtained post injection. FINDINGS: There is homogeneous distribution radiotracer on the perfusion images submitted. There is no evidence for perfusion defect. IMPRESSION: No evidence for perfusion defect.
[2018-12-16] MEDS: DIVALPROEX 250 MG TABLET.DR PO SCH ×2 (13:30→20:16)
[2018-12-16] MEDS ORDERED: DIVALPROEX 250 MG TABLET.DR PO STA (13:31)
[2018-12-16] MEDS: ASPIRIN 81 MG PO SCH (14:47)
[2018-12-16] MEDS ORDERED: INFLUENZA VACCINE (6 MOS+) 60 MCG/0.5 ML SYRINGE IM ONE (14:58)
[2018-12-16] MEDS: GABAPENTIN 400 MG CAP PO SCH ×3 (16:26→20:16)
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
[2018-12-16] MEDS ORDERED: FUROSEMIDE 10 MG/ML 2 ML VIAL IV SCH (21:00)
[2018-12-16] MEDS ORDERED: traZODone HCL 50 MG TAB PO SCH (21:00)
[2018-12-16] MEDS ORDERED: TAMSULOSIN 0.4 MG CAP.ER.24H PO SCH (21:00)
[2018-12-16] MEDS ORDERED: PRAMIPEXOLE 0.5 MG TAB PO SCH (21:00)
[2018-12-16] MEDS ORDERED: OLANZapine 5 MG TAB PO SCH (21:00)
[2018-12-16] MEDS: HYDROcodone/APAP 10-325MG 1 EACH TAB PO PRN (23:51)
[2018-12-17] MEDS ORDERED: LEVOTHYROXINE 100 MCG TAB PO SCH (06:30)
[2018-12-17 07:12] VITALS: RESP 18
[2018-12-17] MEDS: ASPIRIN 81 MG PO SCH (07:29)
[2018-12-17] MEDS: DIVALPROEX 250 MG TABLET.DR PO SCH (07:29)
[2018-12-17] MEDS: GABAPENTIN 400 MG CAP PO SCH (07:29)
--- NOTE | 2018-12-17 08:43 | US ---
EXAMINATION TYPE: US venous doppler duplex LE DATE OF EXAM: 12/17/2018 7:57 AM COMPARISON: US lower extremities dated 12/12/2017 CLINICAL HISTORY: Rule out DVT. Leg Swelling SIDE PERFORMED: Bilateral TECHNIQUE: The lower extremity deep venous system is examined utilizing real time linear array sonog jose with graded compression, doppler sonography and color-flow sonography. VESSELS IMAGED: External Iliac Vein (EIV) Common Femoral Vein Deep Femoral Vein Greater Saphenous Vein * Femoral Vein Popliteal Vein Small Saphenous Vein * Proximal Calf Veins (* superficial vessels) Grayscale, color doppler, spectral doppler imaging performed of the deep veins of the lower extremiti es. Right Leg: Negative for DVT Left Leg: Negative for DVT There is normal flow, compressibility, vascular waveforms. IMPRESSION: No evident deep venous thrombosis at or above the knees. Follow-up as indicated.
[2018-12-17] MEDS ORDERED: ALLOPURINOL 300 MG TAB PO SCH (09:00)
[2018-12-17] MEDS ORDERED: NON-FORMULARY DRUG (Garlic [Garlic] 1 TAB) PO SCH (09:00)
[2018-12-17] MEDS ORDERED: HEPARIN SODIUM,PORCINE 5,000 UNIT/ML 1 ML VIAL SQ SCH (09:00)
[2018-12-17] MEDS ORDERED: FLUoxetine HCL 20 MG CAP PO SCH (09:00)
[2018-12-17] MEDS ORDERED: CALCIUM CARBONATE 500 MG CHEWABLE PO SCH (09:00)
[2018-12-17] MEDS ORDERED: FUROSEMIDE 40 MG TAB PO SCH (09:00)
[2018-12-17 11:17] VITALS: BP 114/75; PULSE 60; TEMP 98.7
[2018-12-17 11:27] LABS: Basophils % (A) 1 %; Eosinophils # (A) 0.3 k/uL (0-0.7); Eosinophils % (A) 5 %; HCT 40.2 % (39.0-53.0); HGB 12.7 gm/dL (13.0-17.5); Lymphocytes # (A) 1.1 k/uL (1.0-4.8); Lymphocytes % (A) 22 %; MCH 31.4 pg (25.0-35.0); MCHC 31.6 g/dL (31.0-37.0); MCV 99.4 fL (80.0-100.0); Mean Platelet Volume 6.9; Monocytes # (A) 0.3 k/uL (0-1.0); Monocytes % (A) 6 %; Neutrophils # (A) 3.1 k/uL (1.3-7.7); Neutrophils % (A) 63 %; Platelet Count 176 k/uL (150-450); RBC 4.04 m/uL (4.30-5.90); RDW 13.9 % (11.5-15.5); WBC 4.9 k/uL (3.8-10.6)
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
[2018-12-17] MEDS: HYDROcodone/APAP 10-325MG 1 EACH TAB PO PRN (11:57)
[2018-12-17] MEDS ORDERED: MULTIVITAMINS, THERA 1 EACH TAB PO SCH (12:00)
--- NOTE | 2018-12-17 14:40 | P.DS ---
Providers Date of admission: 12/16/18 11:13 Attending physician: Albaro Jacobsen Consults: 12/16/18 11:13 Consult Physician Urgent Consulting Provider: Conner Contreras Consult Reason/Comments: Dyspnea, chest pain Do you want consulting provider notified?: Yes Primary care physician: Graciela Stanley [facility] Course: 68-year-old admitted because of the left shoulder pain radiating to the anterior left chest area. I did see and examine the patient patient appears to have tenderness in the left anterior chest area predominantly in the left trapezius area as well as left glenoid's capsular area patient has painful abduction of the left arm I do not believe patient has a cardiac chest pain or PE. Patient underwent workup for both VQ scan is low probability for pulmonary embolism. Patient will be discharged today with nonsteroidal anti- inflammatories, tramadol as a cannot use other nonsteroidal anti-inflammatory medications. Patient was advised to use ice packing. Will set up a follow with orthopedic surgery as an outpatient and patient will be discharged today. PHYSICAL EXAMINATION: GENERAL: The patient is alert and oriented x3, not in any acute distress. Well developed, well nourished. HEENT: Pupils are round and equally reacting to light. EOMI. No scleral icterus. No conjunctival pallor. Normocephalic, atraumatic. No pharyngeal erythema. No thyromegaly. CARDIOVASCULAR: S1 and S2 present. No murmurs, rubs, or gallops. PULMONARY: Chest is clear to auscultation, no wheezing or crackles. ABDOMEN: Soft, nontender, nondistended, normoactive bowel sounds. No palpable organomegaly. MUSCULOSKELETAL: As mentioned above EXTREMITIES: No cyanosis, clubbing, or pedal edema. NEUROLOGICAL: Gross neurological examination did not reveal any focal deficits. SKIN: No rashes. Other chronic medical problems hospitalization course please refer to dictation from Dr. rush from yesterday Plan - Discharge Summary Discharge Rx Participant: No New Discharge Prescriptions: No Action Hydrocodone/Acetaminophen [[place] 10-325] 1 tab PO Q8H Gabapentin [Neurontin] 400 mg PO QID Divalproex [Depakote] 250 mg PO BID Levothyroxine Sodium [Synthroid] 100 mcg PO DAILY Allopurinol [Zyloprim] 300 mg PO DAILY FLUoxetine HCL [PROzac] 80 mg PO DAILY Garlic 1 tab PO DAILY Cholecalciferol [Vitamin D3] 1,000 units PO SUMOWEFR Multivitamins, Thera [Multivitamin (formulary)] 1 tab PO DAILY Tamsulosin HCl [Flomax] 0.8 mg PO HS traZODone HCL [Desyrel] 50 mg PO HS Ergocalciferol [Vitamin D2 (DRISDOL)] 50,000 unit PO SA Calcitriol 0.25 mcg PO SA Cholecalciferol [Vitamin D3] 2,000 unit PO TUTHSA OLANZapine [ZyPREXA] 5 mg PO HS Pramipexole [Mirapex] 0.5 mg PO HS Levocetirizine Dihydrochloride [Xyzal] 5 mg PO DAILY Furosemide [Lasix] 40 mg PO DAILY Calcium Citrate 400 mg PO DAILY Aspirin 81 mg PO DAILY chew Discharge Medication List Allopurinol [Zyloprim] 300 mg PO DAILY 03/21/15 [History] Divalproex [Depakote] 250 mg PO BID 03/21/15 [History] FLUoxetine HCL [PROzac] 80 mg PO DAILY 03/21/15 [History] Gabapentin [Neurontin] 400 mg PO QID 03/21/15 [History] Hydrocodone/Acetaminophen [[place] 10-325] 1 tab PO Q8H 03/21/15 [History] Levothyroxine Sodium [Synthroid] 100 mcg PO DAILY 03/21/15 [History] Cholecalciferol [Vitamin D3] 1,000 units PO SUMOWEFR 06/18/15 [History] Garlic 1 tab PO DAILY 06/18/15 [History] Multivitamins, Thera [Multivitamin (formulary)] 1 tab PO DAILY 03/13/17 [History ] Tamsulosin HCl [Flomax] 0.8 mg PO HS 03/13/17 [History] traZODone HCL [Desyrel] 50 mg PO HS 03/13/17 [History] Calcitriol 0.25 mcg PO SA 08/03/17 [History] Ergocalciferol [Vitamin D2 (DRISDOL)] 50,000 unit PO SA 08/03/17 [History] Calcium Citrate 400 mg PO DAILY 12/11/18 [History] Cholecalciferol [Vitamin D3] 2,000 unit PO TUTHSA 12/11/18 [History] Furosemide [Lasix] 40 mg PO DAILY 12/11/18 [History] Levocetirizine Dihydrochloride [Xyzal] 5 mg PO DAILY 12/11/18 [History] OLANZapine [ZyPREXA] 5 mg PO HS 12/11/18 [History] Pramipexole [Mirapex] 0.5 mg PO HS 12/11/18 [History] Aspirin 81 mg PO DAILY chew 12/12/18 [Rx] Follow up Appointment(s)/Referral(s): Olag Owens MD [Primary Care Provider] - 3 Days Asael Sanders MD [STAFF PHYSICIAN] - 12/24/18 1:20 pm Discharge Disposition: HOME SELF-CARE
[2018-12-21] MEDS ORDERED: CALCITRIOL 0.25 MCG CAP PO SCH (12:00)
== END 2018-12-17 12:48 | disposition home or self-care (01) ==
LOC: EC 06:31 → 1SOBS 11:13
PROVIDERS: ADMIT Internal Medicine; ATTEND Internal Medicine
DX: R07.89 Other chest pain (principal); K21.9 Gastro-esophageal reflux disease without esophagitis; H91.90 Unspecified hearing loss, unspecified ear; M19.90 Unspecified osteoarthritis, unspecified site; N40.0 Benign prostatic hyperplasia without lower urinary tract symptoms; M10.9 Gout, unspecified; G25.81 Restless legs syndrome; M25.512 Pain in left shoulder; R06.00 Dyspnea, unspecified; R05 Cough; J81.1 Chronic pulmonary edema; E03.9 Hypothyroidism, unspecified; G62.9 Polyneuropathy, unspecified; R15.9 Full incontinence of feces; K52.9 Noninfective gastroenteritis and colitis, unspecified; R41.3 Other amnesia; N18.3 Chronic kidney disease, stage 3 (moderate); R79.89 Other specified abnormal findings of blood chemistry; E66.01 Morbid (severe) obesity due to excess calories; Z68.42 Body mass index [BMI] 45.0-49.9, adult; D64.9 Anemia, unspecified; F41.9 Anxiety disorder, unspecified; F31.9 Bipolar disorder, unspecified; Z90.49 Acquired absence of other specified parts of digestive tract; Z98.84 Bariatric surgery status; Z83.3 Family history of diabetes mellitus; Z87.01 Personal history of pneumonia (recurrent); Z79.899 Other long term (current) drug therapy; Z79.890 Hormone replacement therapy; Z79.891 Long term (current) use of opiate analgesic; Z79.82 Long term (current) use of aspirin; Z99.3 Dependence on wheelchair; Z23 Encounter for immunization
CPT/HCPCS: 96372; 96376; 96365; 96366; 96375; 99285; 36415; 93005; 85379; 83880; 80053; 82550; 82553; 83735; 84484; 85025 ×2; 85610; 85730; 71046; 93970; 78580; 90686; G0378 ×2; A9540; G0008; J1644 ×3; J1940

== ENCOUNTER 2019-01-06 11:10 | Inpatient (IN) | payer MEDICARE, OTHER ==
[2019-01-06] MEDS ORDERED: SODIUM CHLORIDE 0.9% 1,000 ML IV STA (11:47)
[2019-01-06] MEDS ORDERED: PANTOPRAZOLE 40 MG/10 ML VIAL IVP STA (11:47)
[2019-01-06] MEDS ORDERED: OCTREOTIDE 100 MCG/ML INJ IVP STA (12:06)
[2019-01-06] MEDS ORDERED: OCTREOTIDE 500 MCG in SODIUM CHLORIDE 0.9% 250 ML IV STA (12:09)
[2019-01-06 12:20] LABS: Basophils % (A) 0 %; Eosinophils # (A) 0.1 k/uL (0-0.7); Eosinophils % (A) 1 %; HCT 29.6 % (39.0-53.0); Lymphocytes # (A) 0.5 k/uL (1.0-4.8); Lymphocytes % (A) 6 %; MCH 32.4 pg (25.0-35.0); MCHC 33.1 g/dL (31.0-37.0); MCV 97.9 fL (80.0-100.0); Mean Platelet Volume 7.1; Monocytes # (A) 0.3 k/uL (0-1.0); Monocytes % (A) 4 %; Neutrophils # (A) 7.7 k/uL (1.3-7.7); Neutrophils % (A) 89 %; Platelet Count 164 k/uL (150-450); RBC 3.02 m/uL (4.30-5.90); RDW 14.2 % (11.5-15.5); WBC 8.7 k/uL (3.8-10.6)
[2019-01-06 12:22] LABS: Albumin 2.9 g/dL (3.5-5.0); Calcium 7.7 mg/dL (8.4-10.2); Total Bilirubin 0.6 mg/dL (0.2-1.3); Total Protein 5.5 g/dL (6.3-8.2)
[2019-01-06 12:26] LABS: Creatine Kinase 41 U/L (55-170)
[2019-01-06 12:35] LABS: HGB 9.8 gm/dL (13.0-17.5)
[2019-01-06 12:39] LABS: Creatine Kinase MB 0.6 ng/mL (0.0-2.4); Troponin I <0.012 ng/mL (0.000-0.034)
[2019-01-06] MEDS ORDERED: SODIUM CHLORIDE 0.9% 1,000 ML IV ONE (12:52)
--- NOTE | 2019-01-06 13:09 | XR ---
EXAMINATION TYPE: XR chest 2V DATE OF EXAM: 01/06/2019 COMPARISON: 12/16/2018 INDICATION: Pain, slip and fall, vomiting blood TECHNIQUE: Frontal and lateral views of the chest are obtained. FINDINGS: The heart size is mildly prominent. The pulmonary vasculature is normal. The lungs are clear. No pneumothorax is evident. No displaced rib fractures are evident. IMPRESSION: 1. No acute pulmonary process.
[2019-01-06 13:12] LABS: Prothrombin Time 10.6 sec (9.0-12.0)
[2019-01-06] MEDS ORDERED: NALOXONE 0.4 MG/ML 1 ML VIAL IV PRN (13:21)
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
--- NOTE | 2019-01-06 14:27 | CT ---
EXAMINATION TYPE: CT ChestAbdPelvis wo con DATE OF EXAM: 01/06/2019 COMPARISON: 09/28/2017 HISTORY: GI bleed CT DLP: 1927.2mGycm Unenhanced CT of the Chest, Abdomen and Pelvis Unenhanced CT of the chest ,abdomen and pelvis is performed. The lack of intravenous contrast limits evaluation of the solid and hollow viscera. Oral contrast: None CT Chest: LUNGS: The lungs are clear and free of infiltrate or atelectasis. No pulmonary nodule or mass is det ected. No pleural effusion or CT evidence of interstitial lung disease. MEDIASTINUM: Thoracic aorta is of normal caliber. The heart is not enlarged. No evidence for media stinal mass or adenopathy. HILAR STRUCTURES: No evidence for mass. No hilar adenopathy is appreciated. OTHER: No significant abnormality. CONTRAST CT ABDOMEN AND PELVIS: LIVER/GB: The gallbladder surgically absent. No space occupying hepatic lesion. Biliary tree is of no rmal caliber. PANCREAS: No inflammation. No distinct mass. SPLEEN: No splenic enlargement. No lesion seen. ADRENALS: No nodule. No thickening. KIDNEYS/BLADDER: No hydronephrosis. No nephrolithiasis. No disctinct renal mass. BOWEL: There is evidence of gastric sleeve formation. Normal appendix. Normal bowel caliber. No inf lammation.Mild small bowel wall thickening may reflect enteritis nonspecific type. Correlate clinical ly.No evidence for incarceration at this time. GENITAL ORGANS: No gross abnormality. LYMPH NODES: No greater than 1cm abdominal or pelvic lymph nodes are appreciated. AORTA: No significant abnormality. OSSEOUS STRUCTURES: Left hip prosthesis noted. Severe degenerative change lower lumbar spine. OTHER: No significant additional abnormality is seen. IMPRESSION: 1. Mild small bowel wall thickening may reflect enteritis nonspecific type. Correlate clinically.
[2019-01-06] MEDS: SODIUM CHLORIDE 0.9% 1,000 ML IV SCH (15:06)
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
[2019-01-06 17:44] LABS: Basophils % (A) 0 %; Eosinophils # (A) 0.1 k/uL (0-0.7); Eosinophils % (A) 1 %; HCT 26.1 % (39.0-53.0); HGB 8.7 gm/dL (13.0-17.5); Lymphocytes % (A) 12 %; MCH 32.4 pg (25.0-35.0); MCHC 33.5 g/dL (31.0-37.0); MCV 96.7 fL (80.0-100.0); Mean Platelet Volume 6.9; Monocytes # (A) 0.3 k/uL (0-1.0); Monocytes % (A) 4 %; Neutrophils # (A) 6.3 k/uL (1.3-7.7); Neutrophils % (A) 81 %; Platelet Count 176 k/uL (150-450); RDW 14.4 % (11.5-15.5); WBC 7.8 k/uL (3.8-10.6)
[2019-01-06 21:16] LABS: Glucose,Whole Blood 167 mg/dL (75-99)
[2019-01-06] MEDS: GABAPENTIN 100 MG CAP PO SCH ×2 (21:55→23:34)
[2019-01-06] MEDS: TAMSULOSIN 0.4 MG CAP.ER.24H PO SCH (21:57)
[2019-01-06] MEDS: PANTOPRAZOLE 40 MG/10 ML VIAL IV SCH (21:57)
[2019-01-06] MEDS: HYDROcodone/APAP 10-325MG 1 EACH TAB PO SCH (21:59)
[2019-01-06] MEDS: OLANZapine 5 MG TAB PO SCH (22:01)
[2019-01-06] MEDS: DIVALPROEX 250 MG TABLET.DR PO SCH (22:01)
[2019-01-06] MEDS: traZODone HCL 50 MG TAB PO SCH (22:01)
[2019-01-07] MEDS: SODIUM CHLORIDE 0.9% 1,000 ML IV SCH ×3 (01:23→17:16)
[2019-01-07] MEDS: PRAMIPEXOLE 0.5 MG TAB PO SCH ×2 (01:23→21:29)
[2019-01-07] MEDS: HYDROcodone/APAP 10-325MG 1 EACH TAB PO SCH ×4 (01:23→23:33)
[2019-01-07 05:06] LABS: HCT 26.1 % (39.0-53.0); HGB 8.8 gm/dL (13.0-17.5); MCH 32.4 pg (25.0-35.0); MCHC 33.7 g/dL (31.0-37.0); MCV 96.1 fL (80.0-100.0); Mean Platelet Volume 7.4; Platelet Count 133 k/uL (150-450); RBC 2.71 m/uL (4.30-5.90); RDW 15.7 % (11.5-15.5); WBC 4.9 k/uL (3.8-10.6)
[2019-01-07 05:30] LABS: Calcium 6.9 mg/dL (8.4-10.2); Potassium 4.5 mmol/L (3.5-5.1)
[2019-01-07] MEDS: LEVOTHYROXINE 100 MCG TAB PO SCH (06:11)
[2019-01-07] MEDS: PANTOPRAZOLE 40 MG/10 ML VIAL IV SCH ×2 (06:11→17:14)
[2019-01-07] MEDS ORDERED: OCTREOTIDE 500 MCG in SODIUM CHLORIDE 0.9% 250 ML IV SCH (06:45)
[2019-01-07] MEDS: GABAPENTIN 100 MG CAP PO SCH ×3 (09:04→21:29)
[2019-01-07] MEDS: FLUoxetine HCL 20 MG CAP PO SCH (09:04)
[2019-01-07] MEDS: DIVALPROEX 250 MG TABLET.DR PO SCH ×2 (09:08→21:29)
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
--- NOTE | 2019-01-07 15:39 | P.PN ---
Subjective 77-year-old gentleman was admitted secondary to upper GI bleed from peptic ulcer disease patient doesn't have any more dark stools hematemesis resolved. Hemoglobin dropped from 13 to 8. Constitutional: Denied any fatigue denied any fever. Cardio vascular: denied any chest pain, palpitations Gastrointestinal denied any nausea vomiting Pulmonary: Denied any shortness of breath cough Neurologic denied any new focal deficits All inpatient medications were reviewed and appropriate changes in these medications as dictated in the interval history and assessment and plan. Objective - Vital Signs Vital signs: Vital Signs Temp 97.9 F 01/07/19 12:00 Pulse 52 L 01/07/19 14:00 Resp 15 01/07/19 14:00 BP 98/67 01/07/19 14:00 Pulse Ox 98 01/07/19 14:00 Intake & Output 01/06/19 01/07/19 01/07/19 18:59 06:59 18:59 Intake Total 2460 800 Output Total 1175 0 Balance 1285 800 Weight 140.614 kg 135 kg Intake: IV 700 Sodium Chloride 0.9% 1, 700 000 ml @ 100 mls/hr IV . Q10H DENIA Rx#:[id number] Intake, IV Titration 600 100 Amount Sodium Chloride 0.9% 1, 600 100 000 ml @ 100 mls/hr IV . Q10H DENIA Rx#:[id number] Blood Product 1860 Rc As-1 Unit 310 [id number] Rc As-1 Unit 310 [id number] Rc As-1 Unit 310 [id number] Output: Urine 1175 0 Other: # Voids 1 # Bowel Movements 1 - Exam PHYSICAL EXAMINATION: GENERAL: The patient is alert and oriented x3, not in any acute distress. Obese HEENT: Pupils are round and equally reacting to light. EOMI. No scleral icterus. No conjunctival pallor. Normocephalic, atraumatic. No pharyngeal erythema. No thyromegaly. CARDIOVASCULAR: S1 and S2 present. No murmurs, rubs, or gallops. PULMONARY: Chest is clear to auscultation, no wheezing or crackles. ABDOMEN: Soft, nontender, nondistended, normoactive bowel sounds. No palpable organomegaly. MUSCULOSKELETAL: No joint swelling or deformity. EXTREMITIES: No cyanosis, clubbing, or pedal edema. NEUROLOGICAL: Gross neurological examination did not reveal any focal deficits. SKIN: No rashes. - Labs CBC & Chem 7: 01/07/19 04:12 01/07/19 04:12 Labs: Abnormal Lab Results - Last 24 Hours (Table) 01/06/19 01/06/19 01/06/19 Range/Units 11:15 17:25 21:13 RBC 2.70 L (4.30-5.90) m/uL Hgb 8.7 L (13.0-17.5) gm/dL Hct 26.1 L (39.0-53.0) % RDW (11.5-15.5) % Plt Count (150-450) k/uL Chloride (98-107) mmol/L Carbon Dioxide (22-30) mmol/L BUN (9-20) mg/dL Creatinine (0.66-1.25) mg/dL Glucose (74-99) mg/dL POC Glucose (mg/dL) 167 H (75-99) mg/dL Calcium (8.4-10.2) mg/dL Crossmatch See Detail 01/07/19 01/07/19 Range/Units 04:12 04:12 RBC 2.71 L (4.30-5.90) m/uL Hgb 8.8 L (13.0-17.5) gm/dL Hct 26.1 L (39.0-53.0) % RDW 15.7 H (11.5-15.5) % Plt Count 133 L (150-450) k/uL Chloride 114 H (98-107) mmol/L Carbon Dioxide 21 L (22-30) mmol/L BUN 59 H (9-20) mg/dL Creatinine 1.87 H (0.66-1.25) mg/dL Glucose 116 H (74-99) mg/dL POC Glucose (mg/dL) (75-99) mg/dL Calcium 6.9 L (8.4-10.2) mg/dL Crossmatch Assessment and Plan Plan: -Acute upper GI bleed: Patient was started on Protonix. Patient probably has peptic is a disease from alcoholism. Possible upper GI endoscopy tomorrow. No more GI bleed today -Acute renal failure: Prerenal azotemia from nausea vomiting and GI bleed expected to improve with IV fluids. Chronic kidney disease stage III baseline creatinine around 1.7 present creatinine around 2.2 chronic kidney disease is secondary to possible hypertensive nephrosclerosis -Patient will be monitored for alcohol withdrawals so far patient doesn't have any withdrawals at this time -Peripheral neuropathy was secondary to morbid obesity and chronic low back issues -Benign prostatic hypertrophy Heparin hypothyroidism -restless leg syndrome Patient will be transferred out of ICU
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
[2019-01-07] MEDS: traZODone HCL 50 MG TAB PO SCH (21:29)
[2019-01-07] MEDS: OLANZapine 5 MG TAB PO SCH (21:29)
[2019-01-07] MEDS: TAMSULOSIN 0.4 MG CAP.ER.24H PO SCH (21:29)
[2019-01-08] MEDS: PANTOPRAZOLE 40 MG/10 ML VIAL IV SCH ×2 (07:06→17:03)
[2019-01-08] MEDS: SODIUM CHLORIDE 0.9% 1,000 ML IV SCH ×2 (07:07→15:05)
[2019-01-08] MEDS: LEVOTHYROXINE 100 MCG TAB PO SCH (07:12)
[2019-01-08 08:39] LABS: Albumin 2.4 g/dL (3.5-5.0); Magnesium 1.9 mg/dL (1.6-2.3); Phosphorus 4.2 mg/dL (2.5-4.5); Total Bilirubin 0.6 mg/dL (0.2-1.3); Total Protein 4.9 g/dL (6.3-8.2)
[2019-01-08 08:46] LABS: Anisocytosis Slight; Basophils % (A) 1 %; Eosinophils # (A) 0.4 k/uL (0-0.7); Eosinophils % (A) 11 %; HCT 25.8 % (39.0-53.0); HGB 8.6 gm/dL (13.0-17.5); Lymphocytes # (A) 0.8 k/uL (1.0-4.8); Lymphocytes % (A) 23 %; MCH 32.3 pg (25.0-35.0); MCHC 33.2 g/dL (31.0-37.0); MCV 97.2 fL (80.0-100.0); Mean Platelet Volume 7.1; Monocytes # (A) 0.2 k/uL (0-1.0); Monocytes % (A) 6 %; Neutrophils # (A) 2.1 k/uL (1.3-7.7); Neutrophils % (A) 58 %; Platelet Count 140 k/uL (150-450); RBC 2.65 m/uL (4.30-5.90); RDW 16.2 % (11.5-15.5); WBC 3.7 k/uL (3.8-10.6)
[2019-01-08] MEDS: HYDROcodone/APAP 10-325MG 1 EACH TAB PO SCH ×2 (08:53→17:03)
[2019-01-08] MEDS: DIVALPROEX 250 MG TABLET.DR PO SCH ×2 (08:53→20:31)
[2019-01-08] MEDS: GABAPENTIN 100 MG CAP PO SCH ×2 (08:53→17:03)
[2019-01-08] MEDS: FLUoxetine HCL 20 MG CAP PO SCH (08:53)
--- NOTE | 2019-01-08 09:10 | P.PN ---
Subjective Progress Note Date: 01/08/19 CHIEF COMPLAINT: GI bleed HISTORY OF PRESENT ILLNESS: Patient examined at the bedside. Denies pain. Denies nausea or vomiting. He is NPO. Scheduled for EGD today by Dr. Rodriges. PHYSICAL EXAM: VITAL SIGNS: Currently stable. GENERAL: Well-developed in no acute distress. HEENT: No sclera icterus. Extraocular movements grossly intact. Moist buccal mucosa. Head is atraumatic, normocephalic. Hears conversational speech. No nasal drainage. NECK: Supple without lymphadenopathy. CHEST: Non-labored respirations and equal bilateral excursions. CARDIOVASCULAR: Regular rate with regular rhythm. Palpable 2+ radial pulses. ABDOMEN: Soft. Nondistended. Nontender. MUSCULOSKELETAL: No clubbing, cyanosis or edema. NEUROLOGIC: No focal or lateralizing signs. Cranial nerves II through XII grossly intact. PSYCH: Appropriate affect. Alert and oriented to person. Confused. SKIN: Well perfused. Good skin turgor. ASSESSMENT: 1. Acute upper GI bleed 2. History of alcohol abuse, patient drinks beer daily PLAN: 1. NPO 2. Will defer scopes to GI services on consult. patient scheduled for EGD today. 3. No surgical intervention at this time 4. Monitor hemoglobin Nurse practitioner note has been reviewed by physician. Signing provider agrees with the documented findings, assessment, and plan of care. Objective - Vital Signs Vital signs: Vital Signs Temp 97.3 F L 01/08/19 07:25 Pulse 64 01/08/19 07:25 Resp 16 01/08/19 07:25 BP 92/53 01/08/19 07:25 Pulse Ox 96 01/08/19 07:25 Intake & Output 01/07/19 01/08/19 01/08/19 18:59 06:59 18:59 Intake Total 800 0 Output Total 0 400 Balance 800 -400 Intake: IV 700 Sodium Chloride 0.9% 1, 700 000 ml @ 100 mls/hr IV . Q10H [facility] Rx#:[id number] Intake, IV Titration 100 Amount Sodium Chloride 0.9% 1, 100 000 ml @ 100 mls/hr IV . Q10H [facility] Rx#:[id number] Oral 0 Output: Urine 0 400 Other: # Voids 1 3 # Bowel Movements 1 1 - Labs CBC & Chem 7: 01/08/19 07:38 01/08/19 07:38 Labs: Abnormal Lab Results - Last 24 Hours (Table) 01/08/19 01/08/19 Range/Units 07:38 07:38 WBC 3.7 L (3.8-10.6) k/uL RBC 2.65 L (4.30-5.90) m/uL Hgb 8.6 L (13.0-17.5) gm/dL Hct 25.8 L (39.0-53.0) % RDW 16.2 H (11.5-15.5) % Plt Count 140 L (150-450) k/uL Lymphocytes # 0.8 L (1.0-4.8) k/uL Chloride 113 H (98-107) mmol/L BUN 50 H (9-20) mg/dL Creatinine 2.10 H (0.66-1.25) mg/dL Glucose 108 H (74-99) mg/dL Calcium 8.0 L (8.4-10.2) mg/dL Total Protein 4.9 L (6.3-8.2) g/dL Albumin 2.4 L (3.5-5.0) g/dL
[2019-01-08] MEDS ORDERED: PROPOFOL 10 MG/ML 20 ML VIAL IV ONE (10:22)
[2019-01-08] MEDS ORDERED: ETOMIDATE 2 MG/ML 10 ML VIAL ONE (10:22)
[2019-01-08] MEDS ORDERED: IV FLUID CONTINUATION 1,000 ML IV ONE (10:22)
[2019-01-08] MEDS ORDERED: LIDOCAINE 1% INJ 10MG/ML (20 ML MDV) ONE (10:22)
--- NOTE | 2019-01-08 11:38 | P.PCN ---
Date of Procedure: 01/08/19 Description of Procedure: BRIEF HISTORY: 68-year-old male with a medical history significant for alcohol abuse, hypothyroidism, osteoarthritis and BPH who presented to the hospital with complaints of vomiting blood and dark stool. The patient reports multiple episodes of nausea and vomiting with production of bright red blood. This continued after presentation to the emergency room with the patient continuing to have bloody vomit. In addition the patient had episodes of melanotic stool. Since admission he had one bowel movement overnight after being admitted to the ICU and one bowel movement this morning. He is had no further episodes of hematemesis. He denies any prior episodes of hematemesis or GI bleeding. He denies any use of NSAID medications at home reporting that he only takes Bunkie for pain. He denies any epigastric abdominal pain but does report some periumbilical soreness. Patient received 3 units of packed red blood cells and is currently found to have a hemoglobin of 8.8 which is stable from 8.7 previously and 9.8 on admission. INR was found to be 1. Liver enzymes were significant for a total bilirubin 0.6, alkaline phosphatase 72, AST 27 and ALT 28. The patient previously had colonoscopy in 05/2015 which was significant for diverticulosis and random biopsies for evaluation of diarrhea. He denies any previous upper endoscopy.. PROCEDURE PERFORMED: Esophagogastroduodenoscopy with biopsy. PREOPERATIVE DIAGNOSIS: Melena, hematemesis, anemia of acute blood loss ESTIMATED BLOOD LOSS: Minimal. IV sedation per anesthesia. PROCEDURE: After informed consent was obtained, the patient was brought into the endoscopy unit. IV sedation was administered by Anesthesia under continuous monitoring. Initially the Olympus GIF-190 video endoscope was inserted into the mouth. Esophagus intubated without any difficulty. It was gradually advanced into the stomach and small bowel and carefully examined. 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 The alimentary limb of the patient's Xander-en-Y was intact without any old blood or pathology to explain anemia. Just proximal to the small bowel in the gastric remnant a large 3-4 cm cratered ulcer with a clot was noted. Lavage was performed to try to remove the clot and was not successful. Biopsies of the ulcer were taken. Gastritis was also noted diffusely in the stomach and biopsies were taken of the gastric remnant. The GE junction was located at 39 cm from the incisors. The esophagus appeared normal. There were no erosions or ulcerations seen and the patient tolerated the procedure well. IMPRESSION: 1. Large cratered gastric ulcer, biopsies taken. 2. Gastritis of the gastric remnant, biopsies taken. 3. Anatomy consistent with prior gastric bypass noted. RECOMMENDATIONS: The findings of this examination were discussed with the patient and his . Okay for liquid diet today. Continue to monitor hemoglobin and transfuse as needed. Continue Protonix twice daily. Continue to monitor for signs and symptoms of further bleeding. Patient will need repeat upper endoscopy in 8 weeks to ensure ulcer healing and no underlying pathology obscured by the ulcer.
--- NOTE | 2019-01-08 12:06 | XR ---
EXAMINATION TYPE: XR chest 1V portable DATE OF EXAM: 01/08/2019 COMPARISON: Prior chest x-ray dated 01/06/2018 HISTORY: Cough TECHNIQUE: Single frontal view of the chest is obtained. FINDINGS: Technique is apical lordotic, rotated. The heart appears enlarged which may be technical. N o pneumothorax or pleural effusion. Lung volumes are low. Patchy basilar density is present. IMPRESSION: Minimal basilar atelectasis.
--- NOTE | 2019-01-08 15:09 | P.PN ---
Subjective Progress Note Date: 01/08/19 Interval history:77-year-old gentleman was admitted secondary to upper GI bleed from peptic ulcer disease patient doesn't have any more dark stools hematemesis resolved. Hemoglobin dropped from 13 to 8. 01/08/2019 evaluated by GI. Nothing by mouth, scheduled for EGD this morning. Hemoglobin 8.6. Creatinine mildly worse, 2.1. Systolic blood pressures in the 90s, no tachycardia. Denies any further bleeding. No dark stools, no hematemesis. Denies abdominal pain. Patient and inquiring about potential subacute rehab. PT/OT evaluation pending. Maintaining O2 sats in the high 90s on 2 L nasal cannula. No DTs. Constitutional: Denied any fatigue denied any fever. Cardio vascular: denied any chest pain, palpitations Gastrointestinal denied any nausea vomiting Pulmonary: Denied any shortness of breath cough Neurologic denied any new focal deficits Active Medications Hydrocodone Bitart/Acetaminophen ([place] 10) 1 each PO Q8H [facility] Last Admin: 01/08/19 08:53 Dose: 1 each Divalproex Sodium (Depakote) 250 mg PO BID [facility] Last Admin: 01/08/19 08:53 Dose: 250 mg Fluoxetine HCl (Prozac) 80 mg PO DAILY [facility] Last Admin: 01/08/19 08:53 Dose: 80 mg Gabapentin (Neurontin) 200 mg PO TID [facility] Last Admin: 01/08/19 08:53 Dose: 200 mg Sodium Chloride (Saline 0.9%) 1,000 mls @ 100 mls/hr IV .Q10H [facility] Last Admin: 01/08/19 07:07 Dose: 100 mls/hr Levothyroxine Sodium (Synthroid) 100 mcg PO DAILY@0630 [facility] Last Admin: 01/08/19 07:12 Dose: Not Given Naloxone HCl (Narcan) 0.2 mg IV Q2M PRN PRN Reason: Opioid Reversal Olanzapine (Zyprexa) 5 mg PO [facility] Last Admin: 01/07/19 21:29 Dose: 5 mg Pantoprazole Sodium (Protonix) 40 mg IV Q12H [facility] Last Admin: 01/08/19 07:06 Dose: 40 mg Pramipexole Dihydrochloride (Mirapex) 0.5 mg PO [facility] Last Admin: 01/07/19 21:29 Dose: 0.5 mg Tamsulosin HCl (Flomax) 0.8 mg PO [facility] Last Admin: 01/07/19 21:29 Dose: 0.8 mg Trazodone HCl (Desyrel) 50 mg PO [facility] Last Admin: 01/07/19 21:29 Dose: 50 mg Objective - Vital Signs Vital signs: Vital Signs Temp 97.3 F L 01/08/19 07:25 Pulse 64 01/08/19 07:25 Resp 16 01/08/19 07:25 BP 92/53 01/08/19 07:25 Pulse Ox 96 01/08/19 07:25 Intake & Output 01/07/19 01/08/19 01/08/19 18:59 06:59 18:59 Intake Total 800 0 Output Total 0 400 Balance 800 -400 Intake: IV 700 Sodium Chloride 0.9% 1, 700 000 ml @ 100 mls/hr IV . Q10H [facility] Rx#:[id number] Intake, IV Titration 100 Amount Sodium Chloride 0.9% 1, 100 000 ml @ 100 mls/hr IV . Q10H [facility] Rx#:[id number] Oral 0 Output: Urine 0 400 Other: # Voids 1 3 # Bowel Movements 1 1 - Exam GENERAL: The patient is alert and oriented x3, not in any acute distress. HEENT: Pupils are round and equally reacting to light. EOMI. No scleral icterus. No conjunctival pallor. Normocephalic, atraumatic. Oral mucosa dry CARDIOVASCULAR: S1 and S2 present. No murmurs, rubs, or gallops. PULMONARY: Chest is clear to auscultation, no wheezing or crackles. ABDOMEN: Soft, nontender, nondistended, normoactive bowel sounds. No palpable organomegaly. EXTREMITIES: No cyanosis, clubbing, or pedal edema. NEUROLOGICAL: Gross neurological examination did not reveal any focal deficits. SKIN: No rashes. - Labs CBC & Chem 7: 01/08/19 07:38 01/08/19 07:38 Labs: Abnormal Lab Results - Last 24 Hours (Table) 01/08/19 01/08/19 Range/Units 07:38 07:38 WBC 3.7 L (3.8-10.6) k/uL RBC 2.65 L (4.30-5.90) m/uL Hgb 8.6 L (13.0-17.5) gm/dL Hct 25.8 L (39.0-53.0) % RDW 16.2 H (11.5-15.5) % Plt Count 140 L (150-450) k/uL Lymphocytes # 0.8 L (1.0-4.8) k/uL Chloride 113 H (98-107) mmol/L BUN 50 H (9-20) mg/dL Creatinine 2.10 H (0.66-1.25) mg/dL Glucose 108 H (74-99) mg/dL Calcium 8.0 L (8.4-10.2) mg/dL Total Protein 4.9 L (6.3-8.2) g/dL Albumin 2.4 L (3.5-5.0) g/dL Assessment and Plan Assessment: -Acute upper GI bleed, possibly peptic ulcer disease from alcoholism. EGD pending. -Acute renal failure: Prerenal azotemia from nausea vomiting and GI bleed. -Chronic kidney disease stage III baseline creatinine around 1.7. 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 Maintain gentle IV fluid hydration/bananabag. Follow closely with GI. Potential subacute rehab, pending PT/OT evaluation. Further recommendations to follow. The impression and plan of care has been dictated as directed. : I performed a history and examination of this patient, discussed the same with the dictator. I agree with the dictator's note ,documented as a scribe. Any additional findings or plans will be noted.
[2019-01-08] MEDS ORDERED: SODIUM CHLORIDE 0.9% 1,000 ML with MVI, ADULT NO.4 WITH VIT K 10 ML, THIAMINE 100 MG, F... IV ONE ×4 (15:30)
[2019-01-08] MEDS: TAMSULOSIN 0.4 MG CAP.ER.24H PO SCH (20:31)
[2019-01-08] MEDS: PRAMIPEXOLE 0.5 MG TAB PO SCH (20:31)
[2019-01-08] MEDS: OLANZapine 5 MG TAB PO SCH (20:31)
[2019-01-08] MEDS: traZODone HCL 50 MG TAB PO SCH (20:31)
[2019-01-08 22:37] LABS: Basophils % (A) 1 %; Eosinophils # (A) 0.4 k/uL (0-0.7); Eosinophils % (A) 9 %; HCT 27.2 % (39.0-53.0); HGB 8.7 gm/dL (13.0-17.5); Lymphocytes # (A) 0.6 k/uL (1.0-4.8); Lymphocytes % (A) 13 %; MCH 31.3 pg (25.0-35.0); MCHC 32.1 g/dL (31.0-37.0); MCV 97.6 fL (80.0-100.0); Macrocytosis Slight; Mean Platelet Volume 7.2; Monocytes # (A) 0.2 k/uL (0-1.0); Monocytes % (A) 5 %; Neutrophils # (A) 3.2 k/uL (1.3-7.7); Neutrophils % (A) 71 %; Platelet Count 142 k/uL (150-450); RBC 2.79 m/uL (4.30-5.90); RDW 15.9 % (11.5-15.5); WBC 4.5 k/uL (3.8-10.6)
[2019-01-09] MEDS: GABAPENTIN 100 MG CAP PO SCH ×4 (00:06→20:51)
[2019-01-09] MEDS: HYDROcodone/APAP 10-325MG 1 EACH TAB PO SCH ×3 (00:07→15:51)
[2019-01-09] MEDS: PANTOPRAZOLE 40 MG/10 ML VIAL IV SCH ×2 (05:51→16:27)
[2019-01-09] MEDS: LEVOTHYROXINE 100 MCG TAB PO SCH (05:51)
[2019-01-09] MEDS: DIVALPROEX 250 MG TABLET.DR PO SCH ×2 (09:30→20:24)
[2019-01-09 09:31] LABS: Anisocytosis Slight; Basophils % (A) 1 %; Eosinophils # (A) 0.4 k/uL (0-0.7); Eosinophils % (A) 11 %; HCT 28.6 % (39.0-53.0); HGB 9.5 gm/dL (13.0-17.5); Lymphocytes # (A) 0.8 k/uL (1.0-4.8); Lymphocytes % (A) 21 %; MCH 32.7 pg (25.0-35.0); MCHC 33.3 g/dL (31.0-37.0); MCV 98.3 fL (80.0-100.0); Macrocytosis Slight; Mean Platelet Volume 7.1; Monocytes # (A) 0.1 k/uL (0-1.0); Monocytes % (A) 3 %; Neutrophils # (A) 2.3 k/uL (1.3-7.7); Neutrophils % (A) 64 %; Platelet Count 152 k/uL (150-450); RBC 2.91 m/uL (4.30-5.90); RDW 16.7 % (11.5-15.5); WBC 3.7 k/uL (3.8-10.6)
[2019-01-09] MEDS: FLUoxetine HCL 20 MG CAP PO SCH ×2 (09:31→09:32)
[2019-01-09 09:49] LABS: Calcium 8.4 mg/dL (8.4-10.2); Magnesium 1.7 mg/dL (1.6-2.3); Phosphorus 3.2 mg/dL (2.5-4.5); Total Bilirubin 0.6 mg/dL (0.2-1.3); Total Protein 5.6 g/dL (6.3-8.2)
--- NOTE | 2019-01-09 10:47 | P.DS ---
Providers Date of admission: 01/06/19 13:49 Expected date of discharge: 01/09/19 Attending physician: Imer Holloway Consults: 01/06/19 13:21 Consult Physician Stat Consulting Provider: Gina Carrion Consult Reason/Comments: GI bleed Do you want consulting provider notified?: Already Contacted 01/06/19 13:33 Consult Physician Stat Consulting Provider: Carleen Arthur Consult Reason/Comments: ICU Management Do you want consulting provider notified?: Already Contacted 01/06/19 19:25 Consult Physician Stat Consulting Provider: Danyel Limon Consult Reason/Comments: GI bleed Do you want consulting provider notified?: Already Contacted Primary care physician: Graciela Stanley [facility] Course: Final Diagnoses: -Acute upper GI bleed, possibly peptic ulcer disease from alcoholism. Status post EGD reporting large cratered gastric ulcer, gastritis of the gastric remnant, biopsies' results pending. -History of Xander-en-Y -Acute renal failure: Prerenal azotemia from nausea vomiting and GI bleed. -Chronic kidney disease stage III baseline creatinine around 1.7. 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 Hemoglobin dropped from 13 to 8.Evaluated by GI. Underwent EGD reporting large cratered gastric ulcer, gastritis of the gastric remnant, biopsies taken. Also evaluated by PT/OT as patient recently experiencing difficulty transferring to and from wheelchair. Cleared by all consults for discharge. Patient is being discharged to [facility] subacute rehab in a stable condition with guarded prognosis. - Exam GENERAL: alert and oriented x3, not in any acute distress. CARDIOVASCULAR: S1 and S2 present. No murmurs, rubs, or gallops. PULMONARY: Chest is clear to auscultation, no wheezing or crackles. ABDOMEN: Soft, nontender, nondistended, normoactive bowel sounds. No palpable organomegaly. NEUROLOGICAL: Gross neurological examination did not reveal any focal deficits. The impression and plan of care has been dictated as directed. : I performed a history and examination of this patient, discussed the same with the dictator. I agree with the dictator's note ,documented as a scribe. Any additional findings or plans will be noted. Time taken: 35 minutes Patient Condition at Discharge: Stable Plan - Discharge Summary Discharge Rx Participant: No New Discharge Prescriptions: New Gabapentin [Neurontin] 200 mg PO TID #18 cap Pantoprazole Sodium [Protonix] 40 mg PO BID #60 tablet. LORazepam [Ativan] 1 mg PO TID PRN 3 Days #9 tab PRN Reason: Anxiety Continue Divalproex [Depakote] 250 mg PO BID Levothyroxine Sodium [Synthroid] 100 mcg PO DAILY Allopurinol [Zyloprim] 300 mg PO DAILY FLUoxetine HCL [PROzac] 80 mg PO DAILY Garlic 1 tab PO DAILY Cholecalciferol [Vitamin D3] 1,000 units PO SUMOWEFR Multivitamins, Thera [Multivitamin (formulary)] 1 tab PO DAILY Tamsulosin HCl [Flomax] 0.8 mg PO HS traZODone HCL [Desyrel] 50 mg PO HS Ergocalciferol [Vitamin D2 (DRISDOL)] 50,000 unit PO SA Calcitriol 0.25 mcg PO SA Cholecalciferol [Vitamin D3] 2,000 unit PO TUTHSA OLANZapine [ZyPREXA] 5 mg PO HS Pramipexole [Mirapex] 0.5 mg PO HS Levocetirizine Dihydrochloride [Xyzal] 5 mg PO DAILY Furosemide [Lasix] 40 mg PO DAILY Calcium Citrate 400 mg PO DAILY Changed Hydrocodone/Acetaminophen [[place] 10-325] 1 tab PO Q8H PRN #9 tablet PRN Reason: Pain Discontinued Gabapentin [Neurontin] 400 mg PO QID Aspirin 81 mg PO DAILY chew Discharge Medication List Allopurinol [Zyloprim] 300 mg PO DAILY 03/21/15 [History] Divalproex [Depakote] 250 mg PO BID 03/21/15 [History] FLUoxetine HCL [PROzac] 80 mg PO DAILY 03/21/15 [History] Levothyroxine Sodium [Synthroid] 100 mcg PO DAILY 03/21/15 [History] Cholecalciferol [Vitamin D3] 1,000 units PO SUMOWEFR 06/18/15 [History] Garlic 1 tab PO DAILY 06/18/15 [History] Multivitamins, Thera [Multivitamin (formulary)] 1 tab PO DAILY 03/13/17 [History ] Tamsulosin HCl [Flomax] 0.8 mg PO HS 03/13/17 [History] traZODone HCL [Desyrel] 50 mg PO HS 03/13/17 [History] Calcitriol 0.25 mcg PO SA 08/03/17 [History] Ergocalciferol [Vitamin D2 (DRISDOL)] 50,000 unit PO SA 08/03/17 [History] Calcium Citrate 400 mg PO DAILY 12/11/18 [History] Cholecalciferol [Vitamin D3] 2,000 unit PO TUTHSA 12/11/18 [History] Furosemide [Lasix] 40 mg PO DAILY 12/11/18 [History] Levocetirizine Dihydrochloride [Xyzal] 5 mg PO DAILY 12/11/18 [History] OLANZapine [ZyPREXA] 5 mg PO HS 12/11/18 [History] Pramipexole [Mirapex] 0.5 mg PO HS 12/11/18 [History] Gabapentin [Neurontin] 200 mg PO TID #18 cap 01/09/19 [Rx] Hydrocodone/Acetaminophen [[place] 10-325] 1 tab PO Q8H PRN #9 tablet 01/09/19 [Rx ] LORazepam [Ativan] 1 mg PO TID PRN 3 Days #9 tab 01/09/19 [Rx] Pantoprazole Sodium [Protonix] 40 mg PO BID #60 tablet. 01/09/19 [Rx] Follow up Appointment(s)/Referral(s): Olga Owens MD [Primary Care Provider] - 1 Week (After DC from subacute rehab) Dragan Rodriges MD [STAFF PHYSICIAN] - 2 Weeks Patient Instructions/Handouts: Gastrointestinal Bleeding (ED) Activity/Diet/Wound Care/Special Instructions: ASA on hold Medi PH Diet: Soft bland cardiac Activity: As tolerated CBC, BMP in 3 days
--- NOTE | 2019-01-09 10:52 | P.PN ---
<Helena Liang A - Last Filed: 01/09/19 10:44> Subjective Progress Note Date: 01/09/19 CHIEF COMPLAINT: GI bleed HISTORY OF PRESENT ILLNESS: Patient examined at the bedside. Denies pain. Denies nausea or vomiting. Tolerating full liquid diet. Patient underwent EGD yesterday which revealed large gastric ulcer. PHYSICAL EXAM: VITAL SIGNS: Currently stable. GENERAL: Well-developed in no acute distress. HEENT: No sclera icterus. Extraocular movements grossly intact. Moist buccal mucosa. Head is atraumatic, normocephalic. Hears conversational speech. No nasal drainage. NECK: Supple without lymphadenopathy. CHEST: Non-labored respirations and equal bilateral excursions. CARDIOVASCULAR: Regular rate with regular rhythm. Palpable 2+ radial pulses. ABDOMEN: Soft. Nondistended. Nontender. MUSCULOSKELETAL: No clubbing, cyanosis or edema. NEUROLOGIC: No focal or lateralizing signs. Cranial nerves II through XII grossly intact. PSYCH: Appropriate affect. Alert and oriented to person. Confused. SKIN: Well perfused. Good skin turgor. ASSESSMENT: 1. Acute upper GI bleed, status post EGD revealing large gastric ulcer 2. History of alcohol abuse, patient drinks beer daily PLAN: Patient is stable from a surgical perspective. We will sign off. Nurse practitioner note has been reviewed by physician. Signing provider agrees with the documented findings, assessment, and plan of care. Objective - Vital Signs Vital signs: Vital Signs Temp 98.3 F 01/09/19 06:45 Pulse 68 01/09/19 10:08 Resp 16 01/09/19 10:08 BP 101/61 01/09/19 06:45 Pulse Ox 95 01/09/19 06:45 Intake & Output 01/08/19 01/09/19 01/09/19 18:59 06:59 18:59 Intake Total 1500 Output Total 253 Balance 1500 -253 Intake: IV 900 Sodium Chloride 0.9% 1, 800 000 ml @ 100 mls/hr IV . Q10H [facility] Rx#:[id number] Oral 600 Output: Urine 252 Stool 1 Other: Voiding Method Incontinent Urinal # Voids 2 1 # Bowel Movements 1 1 - Labs CBC & Chem 7: 01/09/19 08:36 01/09/19 08:36 Labs: Abnormal Lab Results - Last 24 Hours (Table) 01/08/19 01/09/19 01/09/19 Range/Units 21:47 08:36 08:36 WBC 3.7 L (3.8-10.6) k/uL RBC 2.79 L 2.91 L (4.30-5.90) m/uL Hgb 8.7 L 9.5 L (13.0-17.5) gm/dL Hct 27.2 L 28.6 L (39.0-53.0) % RDW 15.9 H 16.7 H (11.5-15.5) % Plt Count 142 L (150-450) k/uL Lymphocytes # 0.6 L 0.8 L (1.0-4.8) k/uL Chloride 111 H (98-107) mmol/L BUN 36 H (9-20) mg/dL Creatinine 2.00 H (0.66-1.25) mg/dL Glucose 155 H (74-99) mg/dL Total Protein 5.6 L (6.3-8.2) g/dL Albumin 3.0 L (3.5-5.0) g/dL <Vijay Arzola - Last Filed: 01/09/19 18:36> Subjective Patient doing better. Patient denies any black stools or bloody stools. No abdominal pain. Hemoglobin is stable. We'll sign off. Please call if needed. Objective - Vital Signs Vital signs: Vital Signs Temp 98.3 F 01/09/19 14:24 Pulse 74 01/09/19 17:24 Resp 22 01/09/19 17:24 BP 132/74 01/09/19 14:24 Pulse Ox 96 01/09/19 14:24 Intake & Output 01/08/19 01/09/19 01/09/19 18:59 06:59 18:59 Intake Total 1500 1360 Output Total 253 Balance 1500 -253 1360 Intake: IV 900 160 Sodium Chloride 0.9% 1, 800 160 000 ml @ 100 mls/hr IV . Q10H [facility] Rx#:[id number] Oral 600 1200 Output: Urine 252 Stool 1 Other: Voiding Method Incontinent Urinal Diaper # Voids 2 1 2 # Bowel Movements 1 1 1 - Labs CBC & Chem 7: 01/09/19 08:36 01/09/19 08:36 Labs: Abnormal Lab Results - Last 24 Hours (Table) 01/08/19 01/09/19 01/09/19 Range/Units 21:47 08:36 08:36 WBC 3.7 L (3.8-10.6) k/uL RBC 2.79 L 2.91 L (4.30-5.90) m/uL Hgb 8.7 L 9.5 L (13.0-17.5) gm/dL Hct 27.2 L 28.6 L (39.0-53.0) % RDW 15.9 H 16.7 H (11.5-15.5) % Plt Count 142 L (150-450) k/uL Lymphocytes # 0.6 L 0.8 L (1.0-4.8) k/uL Chloride 111 H (98-107) mmol/L BUN 36 H (9-20) mg/dL Creatinine 2.00 H (0.66-1.25) mg/dL Glucose 155 H (74-99) mg/dL Total Protein 5.6 L (6.3-8.2) g/dL Albumin 3.0 L (3.5-5.0) g/dL
--- NOTE | 2019-01-09 14:48 | P.PN ---
Subjective Progress Note Date: 01/09/19 Interval history:77-year-old gentleman was admitted secondary to upper GI bleed from peptic ulcer disease patient doesn't have any more dark stools hematemesis resolved. Hemoglobin dropped from 13 to 8. 01/08/2019 evaluated by GI. Nothing by mouth, scheduled for EGD this morning. Hemoglobin 8.6. Creatinine mildly worse, 2.1. Systolic blood pressures in the 90s, no tachycardia. Denies any further bleeding. No dark stools, no hematemesis. Denies abdominal pain. Patient and inquiring about potential subacute rehab. PT/OT evaluation pending. Maintaining O2 sats in the high 90s on 2 L nasal cannula. No DTs. 01/09/2019 status post EGD reporting large cratered gastric ulcer, gastritis of the gastric remnant, biopsies' results pending. Hemoglobin 9.5, creatinine 2. Currently maintained on clear liquid diet, tolerating with no nausea or vomiting. Initially had planned for discharge today but now having maroon stools. Constitutional: Denied any fatigue denied any fever. Cardio vascular: denied any chest pain, palpitations Gastrointestinal denied any nausea vomiting, Pulmonary: Denied any shortness of breath cough Neurologic denied any new focal deficits Active Medications Generic Name Dose Route Start Last Admin Trade Name Freq PRN Reason Stop Dose Admin Hydrocodone Bitart/Acetaminophen 1 each 01/06/19 16:00 01/09/19 09:29 [place] 10 PO 1 each Q8H DENIA Administration Divalproex Sodium 250 mg 01/06/19 21:00 01/09/19 09:30 Depakote PO 250 mg BID DENIA Administration Fluoxetine HCl 80 mg 01/07/19 09:00 01/09/19 09:32 Prozac PO 80 mg DAILY DENIA Administration Gabapentin 200 mg 01/06/19 16:00 01/09/19 09:30 Neurontin PO 200 mg TID DENIA Administration Levothyroxine Sodium 100 mcg 01/07/19 06:30 01/09/19 05:51 Synthroid PO 100 mcg DAILY@0630 DENIA Administration Naloxone HCl 0.2 mg 01/06/19 13:21 Narcan IV Q2M PRN Opioid Reversal Olanzapine 5 mg 01/06/19 21:00 01/08/19 20:31 Zyprexa PO 5 mg HS DENIA Administration Pantoprazole Sodium 40 mg 01/06/19 18:00 01/09/19 05:51 Protonix IV 40 mg Q12H DENIA Administration Pramipexole Dihydrochloride 0.5 mg 01/06/19 21:00 01/08/19 20:31 Mirapex PO 0.5 mg HS DENIA Administration Tamsulosin HCl 0.8 mg 01/06/19 21:00 01/08/19 20:31 Flomax PO 0.8 mg HS DENIA Administration Trazodone HCl 50 mg 01/06/19 21:00 01/08/19 20:31 Desyrel PO 50 mg HS DENIA Administration Objective - Vital Signs Vital signs: Vital Signs Temp 98.3 F 01/09/19 14:24 Pulse 85 01/09/19 14:24 Resp 16 01/09/19 14:24 BP 132/74 01/09/19 14:24 Pulse Ox 96 01/09/19 14:24 Intake & Output 01/08/19 01/09/19 01/09/19 18:59 06:59 18:59 Intake Total 1500 1360 Output Total 253 Balance 1500 -253 1360 Intake: IV 900 160 Sodium Chloride 0.9% 1, 800 160 000 ml @ 100 mls/hr IV . Q10H DENIA Rx#:[id number] Oral 600 1200 Output: Urine 252 Stool 1 Other: Voiding Method Incontinent Urinal Diaper # Voids 2 1 5 # Bowel Movements 1 1 3 - Exam GENERAL: The patient is alert and oriented x3, not in any acute distress. HEENT: Pupils are round and equal. EOMI. No scleral icterus. No conjunctival pallor. Normocephalic, atraumatic. Oral mucosa moist CARDIOVASCULAR: S1 and S2 present. No murmurs, rubs, or gallops. PULMONARY: Chest is clear to auscultation, no wheezing or crackles. ABDOMEN: Soft, nontender, nondistended, normoactive bowel sounds. No palpable organomegaly. EXTREMITIES: No cyanosis, clubbing, or pedal edema. NEUROLOGICAL: Gross neurological examination did not reveal any focal deficits. SKIN: No rashes. - Labs CBC & Chem 7: 01/09/19 08:36 01/09/19 08:36 Labs: Abnormal Lab Results - Last 24 Hours (Table) 01/08/19 01/09/19 01/09/19 Range/Units 21:47 08:36 08:36 WBC 3.7 L (3.8-10.6) k/uL RBC 2.79 L 2.91 L (4.30-5.90) m/uL Hgb 8.7 L 9.5 L (13.0-17.5) gm/dL Hct 27.2 L 28.6 L (39.0-53.0) % RDW 15.9 H 16.7 H (11.5-15.5) % Plt Count 142 L (150-450) k/uL Lymphocytes # 0.6 L 0.8 L (1.0-4.8) k/uL Chloride 111 H (98-107) mmol/L BUN 36 H (9-20) mg/dL Creatinine 2.00 H (0.66-1.25) mg/dL Glucose 155 H (74-99) mg/dL Total Protein 5.6 L (6.3-8.2) g/dL Albumin 3.0 L (3.5-5.0) g/dL Assessment and Plan Assessment: -Acute upper GI bleed, possibly peptic ulcer disease from alcoholism. Status post EGD reporting large cratered gastric ulcer, gastritis of the gastric remnant, biopsies' results pending. -History of Xander-en-Y -Acute renal failure: Prerenal azotemia from nausea vomiting and GI bleed. -Chronic kidney disease stage III baseline creatinine around 1.7. -chronic kidney disease is secondary to possible hypertensive nephrosclerosis -Peripheral neuropathy was secondary to morbid obesity and chronic low back issues -Benign prostatic hypertrophy Heparin hypothyroidism -restless leg syndrome Plan: Continue on current medication regime, PPI, monitoring and symptomatic treatment.Maintain gentle IV fluid hydration, clear liquid diet. Close monitoring, CBC and creatinine, with repeat labs ordered for a.m. Follow closely with GI. DC to subacute rehab, on hold for today, possibly tomorrow, as patient having maroon stools. Carafate added to med regime. Further recommendations to follow. The impression and plan of care has been dictated as directed. : I performed a history and examination of this patient, discussed the same with the dictator. I agree with the dictator's note ,documented as a scribe. Any additional findings or plans will be noted.
[2019-01-09] MEDS: OLANZapine 5 MG TAB PO SCH (20:24)
[2019-01-09] MEDS: TAMSULOSIN 0.4 MG CAP.ER.24H PO SCH (20:24)
[2019-01-09] MEDS: traZODone HCL 50 MG TAB PO SCH (20:24)
[2019-01-09] MEDS: PRAMIPEXOLE 0.5 MG TAB PO SCH (20:24)
[2019-01-10] MEDS: HYDROcodone/APAP 10-325MG 1 EACH TAB PO SCH ×3 (00:17→15:29)
[2019-01-10] MEDS: PANTOPRAZOLE 40 MG/10 ML VIAL IV SCH ×2 (05:32→17:45)
[2019-01-10] MEDS: LEVOTHYROXINE 100 MCG TAB PO SCH (05:32)
[2019-01-10 06:03] VITALS: BP 128/77; PULSE 85; RESP 18; TEMP 98.3
--- NOTE | 2019-01-10 06:33 | P.PN ---
Subjective Progress Note Date: 01/09/19 Principal diagnosis: Hematemesis, anemia of acute blood loss No further nausea, vomiting or hematemesis. Tolerated liquids. Brown bowel movement this morning. Objective - Vital Signs Vital signs: Vital Signs Temp 98.3 F 01/09/19 14:24 Pulse 74 01/09/19 17:24 Resp 22 01/09/19 17:24 BP 132/74 01/09/19 14:24 Pulse Ox 96 01/09/19 14:24 Intake & Output 01/09/19 01/09/19 01/10/19 06:59 18:59 06:59 Intake Total 1360 Output Total 253 Balance -253 1360 Intake: IV 160 Sodium Chloride 0.9% 1, 160 000 ml @ 100 mls/hr IV . Q10H [facility] Rx#:[id number] Oral 1200 Output: Urine 252 Stool 1 Other: Voiding Method Incontinent Urinal Diaper # Voids 1 2 1 # Bowel Movements 1 1 - Exam On physical examination, patient appears comfortable in no apparent distress. HEAD: Normocephalic, atraumatic. EYES: No scleral icterus. No conjunctival injection. MOUTH: No lesions, tongue midline. NECK: Trachea midline, no gross abnormalities. CHEST: Decreased air entry in all lung martinez. ABDOMEN: Soft, obese. Bowel sounds are positive. No organomegaly. No guarding or rigidity. EXTREMITIES: No pedal edema. SKIN: No rashes, no jaundice. NEUROLOGIC: Alert and oriented x3. No focal deficits. - Labs CBC & Chem 7: 01/09/19 08:36 01/09/19 08:36 Labs: Abnormal Lab Results - Last 24 Hours (Table) 01/08/19 01/09/19 01/09/19 Range/Units 21:47 08:36 08:36 WBC 3.7 L (3.8-10.6) k/uL RBC 2.79 L 2.91 L (4.30-5.90) m/uL Hgb 8.7 L 9.5 L (13.0-17.5) gm/dL Hct 27.2 L 28.6 L (39.0-53.0) % RDW 15.9 H 16.7 H (11.5-15.5) % Plt Count 142 L (150-450) k/uL Lymphocytes # 0.6 L 0.8 L (1.0-4.8) k/uL Chloride 111 H (98-107) mmol/L BUN 36 H (9-20) mg/dL Creatinine 2.00 H (0.66-1.25) mg/dL Glucose 155 H (74-99) mg/dL Total Protein 5.6 L (6.3-8.2) g/dL Albumin 3.0 L (3.5-5.0) g/dL Assessment and Plan (1) Anemia due to blood loss Narrative/Plan: Patient presenting with hematemesis and melena with acute fall in hemoglobin. Upper endoscopy performed with large nonbleeding ulcer with a visible clot in the remnant stomach. Current Visit: Yes Status: Acute Code(s): D50.0 - IRON DEFICIENCY ANEMIA SECONDARY TO BLOOD LOSS (CHRONIC) SNOMED Code(s): 388797569 (2) Upper GI bleed Narrative/Plan: Patient presenting with hematemesis found to have large gastric ulcer on endoscopic evaluation, which is likely the source of his symptoms. Current Visit: Yes Status: Acute Code(s): K92.2 - GASTROINTESTINAL HEMORRHAGE, UNSPECIFIED SNOMED Code(s): 29587312 Plan: Supportive care Continue to monitor hemoglobin and transfuse as needed Continue IV Protonix therapy, okay for discharge on twice daily PPI therapy Continue to monitor for signs and symptoms of GI bleeding Okay for full liquids, advance to a GI soft tomorrow Avoid NSAIDs and anticoagulation at this time patient will need follow-up with gasroenterology ne to 2 weeks after discharge for repeat upper endoscopy in 8 weeks to ensure ulcer healing Thank you for allowing us to participate in the care of the patient we will continue to follow
[2019-01-10] MEDS: DIVALPROEX 250 MG TABLET.DR PO SCH (09:02)
[2019-01-10] MEDS: FLUoxetine HCL 20 MG CAP PO SCH (09:02)
[2019-01-10] MEDS: GABAPENTIN 100 MG CAP PO SCH ×2 (09:03→15:30)
[2019-01-10 10:01] LABS: Anisocytosis Slight; Basophils % (A) 0 %; Eosinophils # (A) 0.3 k/uL (0-0.7); Eosinophils % (A) 5 %; HCT 28.5 % (39.0-53.0); HGB 9.5 gm/dL (13.0-17.5); Lymphocytes # (A) 0.7 k/uL (1.0-4.8); Lymphocytes % (A) 12 %; MCH 32.2 pg (25.0-35.0); MCHC 33.4 g/dL (31.0-37.0); MCV 96.3 fL (80.0-100.0); Mean Platelet Volume 7.6; Monocytes # (A) 0.2 k/uL (0-1.0); Monocytes % (A) 4 %; Neutrophils # (A) 4.7 k/uL (1.3-7.7); Neutrophils % (A) 79 %; Platelet Count 152 k/uL (150-450); RBC 2.95 m/uL (4.30-5.90); RDW 16.2 % (11.5-15.5); WBC 5.9 k/uL (3.8-10.6)
[2019-01-10 10:42] LABS: Calcium 8.4 mg/dL (8.4-10.2); Magnesium 1.7 mg/dL (1.6-2.3); Phosphorus 3.1 mg/dL (2.5-4.5); Potassium 4.3 mmol/L (3.5-5.1); Total Bilirubin 0.6 mg/dL (0.2-1.3); Total Protein 5.7 g/dL (6.3-8.2)
--- NOTE | 2019-01-10 12:55 | P.PN ---
Progress Note - Text Progress Note Date: 01/10/19 Addendum to Discharge summary: Patient being discharged today to [facility] subacute rehab in a stable condition with guarded prognosis, pending further GI clearance. Discharge held yesterday as patient had maroon stools post EGD. No further bleeding, tolerating low fiber diet with no nausea vomiting or diarrhea. Denies abdominal pain. Hemoglobin stable at 9.5, with creatinine down to 1.77. Please refer to discharge summary for final diagnoses, Hospital course and discharge medications. - Exam GENERAL:alert and oriented x3, no acute distress. CARDIOVASCULAR: S1 and S2 present. No murmurs, rubs, or gallops. PULMONARY: Chest is clear to auscultation, no wheezing or crackles. ABDOMEN: Soft, nontender, nondistended, normoactive bowel sounds. NEUROLOGICAL: Gross neurological examination did not reveal any focal deficits. The impression and plan of care has been dictated as directed. : I performed a history and examination of this patient, discussed the same with the dictator. I agree with the dictator's note ,documented as a scribe. Any additional findings or plans will be noted. Time taken: 35 minutes
== END 2019-01-10 18:25 | DRG 378 ==
LOC: EC 11:10 → 2SICU 13:49 → 4MS4W 01-07 21:23
PROVIDERS: ADMIT Internal Medicine; ATTEND Internal Medicine
PROC: 0DB68ZX Excision of Stomach, Via Natural or Artificial Opening Endoscopic, Diagnostic (ICD-10-PCS; principal; 2019-01-08 07:55)
DX: K25.4 Chronic or unspecified gastric ulcer with hemorrhage (principal); D62 Acute posthemorrhagic anemia; Z68.42 Body mass index [BMI] 45.0-49.9, adult; C34.90 Malignant neoplasm of unspecified part of unspecified bronchus or lung; N17.9 Acute kidney failure, unspecified; K29.71 Gastritis, unspecified, with bleeding; I25.10 Atherosclerotic heart disease of native coronary artery without angina pectoris; E78.5 Hyperlipidemia, unspecified; E03.9 Hypothyroidism, unspecified; E55.9 Vitamin D deficiency, unspecified; F31.9 Bipolar disorder, unspecified; F41.9 Anxiety disorder, unspecified; F10.20 Alcohol dependence, uncomplicated; G25.81 Restless legs syndrome; G62.9 Polyneuropathy, unspecified; H91.90 Unspecified hearing loss, unspecified ear; K21.9 Gastro-esophageal reflux disease without esophagitis; N18.3 Chronic kidney disease, stage 3 (moderate); M81.0 Age-related osteoporosis without current pathological fracture; N40.1 Benign prostatic hyperplasia with lower urinary tract symptoms; I12.9 Hypertensive chronic kidney disease with stage 1 through stage 4 chronic kidney disease, or unspecified chronic kidney disease; N39.498 Other specified urinary incontinence; Z96.642 Presence of left artificial hip joint; Z96.653 Presence of artificial knee joint, bilateral; E66.01 Morbid (severe) obesity due to excess calories; Z87.820 Personal history of traumatic brain injury; Z79.82 Long term (current) use of aspirin; Z79.890 Hormone replacement therapy; Z79.899 Other long term (current) drug therapy; Z98.84 Bariatric surgery status; Z83.3 Family history of diabetes mellitus; Z90.49 Acquired absence of other specified parts of digestive tract
CPT/HCPCS: 36415; 43239; 71045; 71046; 71250; 74176; 80048; 80053; 82140; 82272; 82550; 82553; 83605; 83735; 84100; 84484; 85025; 85027; 85610; 85730; 86850; 86900; 86901; 86920; 88305; 93005; 94760; 96360; 96365; 96366; 96375; 96376; 99285

== ENCOUNTER 2019-05-01 12:10 | Day surgery (SDC) | payer MEDICARE, OTHER ==
[2019-04-30 10:51] VITALS: BMI 104.6
[~2019-05-01 12:10] MED LIST: LACTATED RINGERS 1,000 ML IV SCH; LIDOCAINE 1% 20 ML VIAL (10MG/ML) FOR IV START INTRADERMA PRN
[2019-05-01 12:38] VITALS: TEMP 97.7
[2019-05-01] MEDS ORDERED: PROPOFOL 10 MG/ML 20 ML VIAL IV ONE (13:36)
[2019-05-01] MEDS ORDERED: LIDOCAINE 1% INJ 10MG/ML (20 ML MDV) ONE (13:36)
[2019-05-01] MEDS ORDERED: GLYCOPYRROLATE 0.2 MG/ML 2 ML VIAL ONE (13:36)
--- NOTE | 2019-05-01 13:54 | P.PCN ---
Date of Procedure: 05/01/19 Description of Procedure: BRIEF HISTORY: 68-year-old male with a medical history significant for alcohol abuse, hypothyroidism, osteoarthritis and BPH who is seen for outpatient EGD. The patient was seen in the hospital where he reports of vomiting blood and dark stools. He had stated she had had multiple episodes of nausea and vomiting productive of bright red blood and dark stool. The patient required blood transfusion with a hemoglobin of 8.8 status post PRBCs. He had colonoscopy on 05/2015 which was significant for diverticulosis with random biopsies for complaints of diarrhea. During his hospitalization and underwent EGD with biopsy which was significant for a large cratered ulcer in the stomach as well as gastritis in the gastric remnant with anatomy consistent with prior gastric bypass. PROCEDURE PERFORMED: Esophagogastroduodenoscopy with biopsy. PREOPERATIVE DIAGNOSIS: History of gastric ulcer. ESTIMATED BLOOD LOSS: Minimal. IV sedation per anesthesia. PROCEDURE: After informed consent was obtained, the patient was brought into the endoscopy unit. IV sedation was administered by Anesthesia under continuous monitoring. Initially the Olympus GIF-190 video endoscope was inserted into the mouth. Esophagus intubated without any difficulty. It was gradually advanced into the stomach and into the small bowel and carefully examined. The patient has anatomy consistent with prior gastric bypass. The scope was passed into the small bowel which appeared normal. The scope at this time was withdrawn into the gastric remnant which appeared essentially normal, there was some mild erythema around the anastomotic site and some mild erythema in the gastric remnant suggestive of mild gastritis which was biopsied. The scope was then withdrawn into the esophagus. The GE junction was located at 43 cm from the incisors. The esophagus appeared normal. There were no erosions or ulcerations seen and the patient tolerated the procedure well. IMPRESSION: 1. Well-healed gastric ulcer. 2. Mild gastritis of the gastric remnant which was biopsied. 3. Anatomy consistent with history of gastric bypass. RECOMMENDATIONS: The findings of this examination were discussed with the patient. Okay to resume diet. Continue medications as previously ordered. Await pathology from biopsies. Avoid NSAID use..
[2019-05-01 13:59] VITALS: RESP 16
[2019-05-01 14:15] VITALS: BP 131/72; PULSE 70
== END 2019-05-01 14:26 | disposition home or self-care (01) ==
LOC: ORWHC2ENDO 12:10
PROVIDERS: ATTEND Internal Medicine
DX: K29.50 Unspecified chronic gastritis without bleeding (principal); K21.9 Gastro-esophageal reflux disease without esophagitis; Z87.11 Personal history of peptic ulcer disease; E07.9 Disorder of thyroid, unspecified; N28.9 Disorder of kidney and ureter, unspecified; G25.81 Restless legs syndrome; F39 Unspecified mood [affective] disorder; H91.90 Unspecified hearing loss, unspecified ear; R41.3 Other amnesia; M10.9 Gout, unspecified; Z98.84 Bariatric surgery status; Z79.890 Hormone replacement therapy; Z79.899 Other long term (current) drug therapy
CPT/HCPCS: 88305; 43239; J2001; J2704

== ENCOUNTER 2019-09-26 08:31 | Inpatient (IN) | payer MEDICARE, OTHER ==
[2019-09-26] MEDS ORDERED: ACETAMINOPHEN TAB 500 MG TAB PO STA (08:46)
[2019-09-26] MEDS ORDERED: IBUPROFEN 600 MG TAB PO STA (08:46)
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
[2019-09-26] MEDS: SODIUM CHLORIDE 0.9% 500 ML 500 ML IV SCH ×2 (09:15→09:16)
[2019-09-26 09:32] LABS: INR 0.9 (<1.2); Partial Thromboplastin Time 25.1 sec (22.0-30.0); Prothrombin Time 10.1 sec (9.0-12.0)
[2019-09-26 09:37] LABS: Anisocytosis Slight; Basophils # (A) 0.1 k/uL (0-0.2); Basophils % (A) 1 %; Eosinophils # (A) 0.5 k/uL (0-0.7); Eosinophils % (A) 12 %; HCT 36.3 % (39.0-53.0); Lymphocytes # (A) 0.3 k/uL (1.0-4.8); Lymphocytes % (A) 6 %; MCH 30.1 pg (25.0-35.0); MCHC 32.9 g/dL (31.0-37.0); MCV 91.4 fL (80.0-100.0); Mean Platelet Volume 6.3; Monocytes # (A) 0.2 k/uL (0-1.0); Monocytes % (A) 6 %; Neutrophils # (A) 3.2 k/uL (1.3-7.7); Neutrophils % (A) 72 %; Platelet Count 156 k/uL (150-450); RBC 3.98 m/uL (4.30-5.90); RDW 16.5 % (11.5-15.5); WBC 4.4 k/uL (3.8-10.6)
[2019-09-26 09:39] LABS: Albumin 3.1 g/dL (3.5-5.0); Calcium 8.1 mg/dL (8.4-10.2); Potassium 5.7 mmol/L (3.5-5.1); Total Bilirubin 0.4 mg/dL (0.2-1.3); Total Protein 6.1 g/dL (6.3-8.2)
--- NOTE | 2019-09-26 09:43 | XR ---
EXAMINATION TYPE: XR chest 2V DATE OF EXAM: 09/26/2019 COMPARISON: 12/29/2018 TECHNIQUE: PA and lateral views submitted. HISTORY: Shortness of breath FINDINGS: Diffuse interstitial pattern with cardiomegaly, bilateral consolidation, and pleural effusion. No pne umothorax. Diffuse osteopenia noted. IMPRESSION: 1. Bilateral consolidation and pleural effusion correlate for CHF. Otherwise consider pneumonia.
[2019-09-26 10:22] LABS: Appearance,Urine Clear (Clear); Bilirubin,Urine Negative (Negative); Blood,Urine Negative (Negative); Color,Urine Yellow; Glucose,Urine (UA) Negative (Negative); Ketones,Urine Negative (Negative); Leukocyte Esterase,Urine Negative (Negative); Mucus,Urine Rare /hpf; Nitrite,Urine Negative (Negative); PH, Urine 5.5 (5.0-8.0); Protein,Urine 1+ (Negative); RBC,Urine 1 /hpf (0-5); Specific Gravity,Urine 1.013 (1.001-1.035); Squamous Epithelial Cell,Urine <1 /hpf (0-4); Urobilinogen,Urine <2.0 mg/dL (<2.0); WBC,Urine <1 /hpf (0-5)
[2019-09-26] MEDS ORDERED: FUROSEMIDE 10 MG/ML 4 ML VIAL IV STA (10:41)
[2019-09-26] MEDS ORDERED: SODIUM POLYSTYRENE SULFONATE 15 GM/60 ML BOTTLE PO STA (10:44)
[2019-09-26] MEDS ORDERED: CALCIUM CHLORIDE 100 MG/ML 10 ML SYRINGE IVP STA (10:44)
[2019-09-26] MEDS ORDERED: ONDANSETRON 4 MG/2 ML VIAL IVP PRN (11:42)
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
[2019-09-26] MEDS ORDERED: FUROSEMIDE 40 MG TAB PO SCH (16:00)
[2019-09-26] MEDS ORDERED: ALBUTEROL NEBULIZED 2.5 MG/3 ML INHALATION PRN (17:37)
--- NOTE | 2019-09-26 17:52 | US ---
EXAMINATION TYPE: US kidneys/renal and bladder DATE OF EXAM: 09/26/2019 COMPARISON: NONE CLINICAL HISTORY: earnest. EXAM MEASUREMENTS: 06/07/2017 Right Kidney: 9.0 x 4.7 x 5.9 cm Left Kidney: 10.3 x 4.9 x 4.7 cm Morbidly obese incoherent patient. Technically difficult, limited patient. Right Kidney: No hydronephrosis or masses seen, limited visualization Left Kidney: No hydronephrosis or masses seen, limited visualization Bladder: wnl There is no evidence for hydronephrosis at this point in time. No nephrolithiasis is seen. No brenton s are identified. The urinary bladder is anechoic. Bilateral ureteral jets are seen. IMPRESSION: Right kidney measures smaller than old exam. This could relate to atrophy. No renal obstruction.
[2019-09-26] MEDS ORDERED: SULFAMETHOX-TMP 800-160MG 1 EACH TAB PO SCH (21:00)
[2019-09-26] MEDS: traZODone HCL 50 MG TAB PO SCH (21:22)
[2019-09-26] MEDS: TAMSULOSIN 0.4 MG CAP.ER.24H PO SCH (21:22)
[2019-09-26] MEDS: MULTIVITAMINS, THERA 1 EACH TAB PO SCH (21:22)
[2019-09-26] MEDS: FLUoxetine HCL 20 MG CAP PO SCH (21:23)
[2019-09-26] MEDS: FUROSEMIDE 10 MG/ML 4 ML VIAL IV SCH (21:23)
[2019-09-26] MEDS: FERROUS SULFATE 325 MG TAB PO SCH (21:23)
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
[2019-09-26] MEDS: OLANZapine 5 MG TAB PO SCH (21:56)
[2019-09-26] MEDS: DIVALPROEX 250 MG TABLET.DR PO SCH (21:56)
[2019-09-26] MEDS: PRAMIPEXOLE 0.25 MG TAB PO SCH (21:56)
[2019-09-26] MEDS: ACETAMINOPHEN TAB 325 MG TAB PO PRN (22:06)
[2019-09-26] MEDS: CLINDAMYCIN 300 MG in DEXTROSE 5% IN WATER 50 ML IVPB SCH ×2 (22:06)
[2019-09-27] MEDS: ACETAMINOPHEN TAB 325 MG TAB PO PRN (04:46)
[2019-09-27] MEDS: GABAPENTIN 100 MG CAP PO SCH ×2 (06:09→17:31)
[2019-09-27] MEDS: LEVOTHYROXINE 100 MCG TAB PO SCH (06:09)
[2019-09-27] MEDS: PANTOPRAZOLE 40 MG TABLET PO SCH ×2 (06:09→17:31)
[2019-09-27] MEDS: CLINDAMYCIN 300 MG in DEXTROSE 5% IN WATER 50 ML IVPB SCH ×6 (06:09→23:34)
[2019-09-27 06:53] LABS: Calcium 7.9 mg/dL (8.4-10.2); Potassium 5.1 mmol/L (3.5-5.1)
[2019-09-27] MEDS ORDERED: ALLOPURINOL 300 MG TAB PO SCH (09:00)
[2019-09-27] MEDS: FUROSEMIDE 10 MG/ML 4 ML VIAL IV SCH ×2 (09:31→20:43)
[2019-09-27] MEDS: DIVALPROEX 250 MG TABLET.DR PO SCH ×2 (09:31→20:43)
--- NOTE | 2019-09-27 10:21 | P.PN ---
Subjective Progress Note Date: 09/27/19 Seen and examined for the follow-up of acute kidney injury. No fevers overnight. No nausea vomiting diarrhea. Lying comfortable in the bed. Objective - Vital Signs Vital signs: Vital Signs Temp 98.3 F 09/27/19 04:00 Pulse 85 09/27/19 04:00 Resp 16 09/27/19 04:00 BP 123/59 09/27/19 04:00 Pulse Ox 92 L 09/27/19 04:00 Intake & Output 09/26/19 09/27/19 09/27/19 18:59 06:59 18:59 Intake Total 660 480 Output Total 500 200 Balance 160 280 Weight 148.778 kg 145 kg Intake: Oral 660 480 Output: Urine 500 200 Other: # Voids 1 2 - Exam No acute distress S1-S2 heard Lungs clear Abdomen soft distended 1+ edema - Labs CBC & Chem 7: 09/26/19 09:00 09/27/19 05:40 Labs: Abnormal Lab Results - Last 24 Hours (Table) 09/26/19 09/26/19 09/26/19 Range/Units 10:04 14:05 14:05 Potassium 5.2 H (3.5-5.1) mmol/L Chloride (98-107) mmol/L BUN (9-20) mg/dL Creatinine (0.66-1.25) mg/dL Calcium (8.4-10.2) mg/dL Procalcitonin 0.16 H (0.02-0.09) ng/mL Urine Protein 1+ H (Negative) Urine Mucus Rare H (None) /hpf 09/27/19 Range/Units 05:40 Potassium (3.5-5.1) mmol/L Chloride 109 H (98-107) mmol/L BUN 38 H (9-20) mg/dL Creatinine 2.85 H (0.66-1.25) mg/dL Calcium 7.9 L (8.4-10.2) mg/dL Procalcitonin (0.02-0.09) ng/mL Urine Protein (Negative) Urine Mucus (None) /hpf Assessment and Plan Assessment: #1 nonoliguric acute kidney injury secondary to cardiorenal syndrome type I. Creatinine stable. #2 chronic kidney disease stage III, baseline creatinine 2.2 MG per DL. #3 hyperkalemia secondary to acute kidney injury and Bactrim, improved. #4 diastolic CHF #5 volume overload #6 metabolic acidosis Plan: #1 renal function stable. Continue with Lasix 40 mg IV twice a day. #2 add sodium bicarbonate for metabolic acidosis #3 bladder scan to rule out urinary retention #4 avoid nephrotoxic agents and hypotensive episodes #5 check labs in the morning.
[2019-09-27] MEDS: SODIUM BICARBONATE TAB 650 MG TAB PO SCH ×2 (11:59→20:43)
[2019-09-27 12:15] VITALS: BMI 48.6
[2019-09-27] MEDS: HYDROcodone/APAP 10-325MG 1 EACH TAB PO PRN (14:46)
--- NOTE | 2019-09-27 14:55 | P.PN ---
Progress Note - Text Progress Note Date: 09/27/19 Chief Complaint: Fever History of presenting complaint: This is a pleasant 69-year-old patient, who is a resident of [facility] off [address] followed by Dr. Dc. Because of severe arthritis in the hips and knees not able to ambulate. Does use a wheelchair. Chronic stable medical conditions include gastric ulcer, chronic kidney disease stage III, peripheral neuropathy, morbid obesity, chronic low back pain, BPH, restless leg syndrome, GERD, primary osteoarthritis, hypothyroid, history of Xander-en-Y gastric bypass surgery, multiple abdominal surgeries. Patient had a baseline is able to feed himself. Patient was a heavy drinker up to a few months ago. Patient's baseline creatinine is around 2. Patient generally of 2019 he did undergo stress echocardiogram that was negative. Patient not a good historian. He thinks he was sent to Dr. Bautista had a fever. Has been feeling weak and tired. Appetite has been okay. Has some nausea. 10 denies the same. No vomiting. Occasional loose stool. Denies any cough or shortness of breath. Admitted with left lower extremity cellulitis. Saxe to be the source of infection. Today-feeling better. No further fever. Tolerating a diet. Review of systems: Was done for constitutional, cardiovascular, GI, pulmonary. relevant finding as above Active Medications Acetaminophen (Tylenol Tab) 650 mg PO Q4H PRN PRN Reason: Mild Pain or Fever > 100.5 Last Admin: 09/27/19 04:46 Dose: 650 mg Documented by: Hydrocodone Bitart/Acetaminophen ([place] 10) 1 each PO Q6H PRN PRN Reason: Pain Last Admin: 09/27/19 14:46 Dose: 1 each Documented by: Albuterol Sulfate (Ventolin Nebulized) 2.5 mg INHALATION RT-Q4H PRN PRN Reason: Shortness Of Breath Allopurinol (Zyloprim) 100 mg PO DAILY [facility] Divalproex Sodium (Depakote) 250 mg PO BID [facility] Last Admin: 09/27/19 09:31 Dose: 250 mg Documented by: Ferrous Sulfate (Feosol) 325 mg PO HS [facility] Last Admin: 09/26/19 21:23 Dose: 325 mg Documented by: Fluoxetine HCl (Prozac) 40 mg PO [facility] Last Admin: 09/26/19 21:23 Dose: 40 mg Documented by: Furosemide (Lasix) 40 mg IV Q12HR [facility] Last Admin: 09/27/19 09:31 Dose: 40 mg Documented by: Gabapentin (Neurontin) 200 mg PO AC-BID [facility] Last Admin: 09/27/19 06:09 Dose: 200 mg Documented by: Clindamycin Phosphate 300 mg/ (Dextrose/Water) 52 mls @ 50 mls/hr IVPB Q8H [facility] Last Admin: 09/27/19 14:40 Dose: 50 mls/hr Documented by: Levothyroxine Sodium (Synthroid) 100 mcg PO 0630 [facility] Last Admin: 09/27/19 06:09 Dose: 100 mcg Documented by: Multivitamins (Theragran) 1 each PO [facility] Last Admin: 09/26/19 21:22 Dose: 1 each Documented by: Olanzapine (Zyprexa) 5 mg PO [facility] Last Admin: 09/26/19 21:56 Dose: 5 mg Documented by: Ondansetron HCl (Zofran) 4 mg IVP Q6HR PRN PRN Reason: Nausea And Vomiting Pantoprazole Sodium (Protonix) 40 mg PO AC-BID [facility] Last Admin: 09/27/19 06:09 Dose: 40 mg Documented by: Pramipexole Dihydrochloride (Mirapex) 0.75 mg PO DAILY@1999 [facility] Last Admin: 09/26/19 21:56 Dose: 0.75 mg Documented by: Silver Sulfadiazine (Silvadene Cream) 1 applic TOPICAL BID [facility] Last Admin: 09/27/19 09:31 Dose: 1 applic Documented by: Sodium Bicarbonate (Sodium Bicarbonate Tab) 650 mg PO BID [facility] Last Admin: 09/27/19 11:59 Dose: 650 mg Documented by: Tamsulosin HCl (Flomax) 0.8 mg PO [facility] Last Admin: 09/26/19 21:22 Dose: 0.8 mg Documented by: Trazodone HCl (Desyrel) 50 mg PO [facility] Last Admin: 09/26/19 21:22 Dose: 50 mg Documented by: Physical examination: VITAL SIGNS: 98.4, 84, 16, 124/54, 92% on 2 L GENERAL: Laying in bed, awake. EYES: Pupils equal. Conjunctiva normal. HEENT: External appearance of nose and ears normal, oral cavity grossly normal. NECK: JVD unable to assess,; masses not palpable. HEART: First and second heart sounds are normal; some edema. LUNGS: Respiratory rate normal; distant breath sounds. ABDOMEN: Soft, distended, nontender, liver spleen not palpable, no masses palpable. PSYCH: Awake, tired, able to answer simple questionsl. DERMATOLOGICAL: Redness of the left lower extremity below the midcalf down to the ankle, with tenderness INVESTIGATIONS, reviewed in the clinical context: Potassium 5.1 bun 38 creatinine 2.85 Blood culture pending Previous testing White count 4.4 hemoglobin 12 platelets is 156 potassium 5.7 and repeat 5.2 BUN 34 creatinine 2.95 Patient's bun and creatinine on December of this year was 30/.77 EKG tracing personally reviewed by me-normal sinus rhythm Chest x-ray film personally reviewed by me-a bit underexposed extremity with venous prominence and questionable cardiomegaly- Assessment: -Acute left lower extremity cellulitis. --Gastric ulcer -Chronic kidney disease stage III from nephrosclerosis -Acute kidney injury, cause unknown at present time. Could be ATN from patient being on Bactrim. -Hyperkalemia secondary to renal failure -Peripheral neuropathy -Morbid obesity BMI 49.9 -Chronic low back pain -BPH -Restless leg syndrome -GERD -Primary osteoarthritis multiple joints -Hypothyroid -History of Xander-en-Y gastric bypass surgery -Medical debility at the bases and uses a wheelchair Plan: Continue with IV clindamycin, topical Silvadene with Kerlix and Everton wrap. Care was discussed the patient. Follow electrolytes closely. We'll also gently hydrate the patient. Start the patient on saline.
[2019-09-27] MEDS: SODIUM CHLORIDE 0.9% 1,000 ML IV SCH (14:58)
[2019-09-27] MEDS: traZODone HCL 50 MG TAB PO SCH (20:42)
[2019-09-27] MEDS: FLUoxetine HCL 20 MG CAP PO SCH (20:42)
[2019-09-27] MEDS: FERROUS SULFATE 325 MG TAB PO SCH (20:43)
[2019-09-27] MEDS: TAMSULOSIN 0.4 MG CAP.ER.24H PO SCH (20:43)
[2019-09-27] MEDS: MULTIVITAMINS, THERA 1 EACH TAB PO SCH (20:43)
[2019-09-27] MEDS: OLANZapine 5 MG TAB PO SCH (20:43)
[2019-09-27] MEDS: PRAMIPEXOLE 0.25 MG TAB PO SCH (21:59)
[2019-09-28] MEDS: SODIUM CHLORIDE 0.9% 1,000 ML IV SCH ×2 (06:09→16:12)
[2019-09-28] MEDS: CLINDAMYCIN 300 MG in DEXTROSE 5% IN WATER 50 ML IVPB SCH ×6 (06:09→15:06)
[2019-09-28] MEDS: PANTOPRAZOLE 40 MG TABLET PO SCH ×2 (06:09→17:34)
[2019-09-28] MEDS: GABAPENTIN 100 MG CAP PO SCH ×2 (06:09→17:33)
[2019-09-28] MEDS: LEVOTHYROXINE 100 MCG TAB PO SCH (06:09)
[2019-09-28 06:58] LABS: Anisocytosis Slight; HGB 11.8 gm/dL (13.0-17.5); MCHC 32.7 g/dL (31.0-37.0); MCV 91.9 fL (80.0-100.0); Mean Platelet Volume 6.3; Platelet Count 147 k/uL (150-450); RBC 3.92 m/uL (4.30-5.90); RDW 16.4 % (11.5-15.5); WBC 4.6 k/uL (3.8-10.6)
[2019-09-28 07:08] LABS: Calcium 8.1 mg/dL (8.4-10.2); Potassium 4.6 mmol/L (3.5-5.1)
[2019-09-28] MEDS: HYDROcodone/APAP 10-325MG 1 EACH TAB PO PRN (08:25)
[2019-09-28] MEDS: ALLOPURINOL 100 MG TAB PO SCH (08:25)
[2019-09-28] MEDS: FUROSEMIDE 10 MG/ML 4 ML VIAL IV SCH (08:26)
[2019-09-28] MEDS: SODIUM BICARBONATE TAB 650 MG TAB PO SCH (08:26)
[2019-09-28] MEDS: DIVALPROEX 250 MG TABLET.DR PO SCH ×2 (08:26→21:02)
--- NOTE | 2019-09-28 10:46 | P.PN ---
Subjective Progress Note Date: 09/28/19 Seen and examined for the follow-up of acute kidney injury. No fevers overnight. No nausea vomiting diarrhea. Lying comfortable in the bed. Objective - Vital Signs Vital signs: Vital Signs Temp 98.2 F 09/28/19 08:00 Pulse 78 09/28/19 08:00 Resp 16 09/28/19 08:00 BP 135/77 09/28/19 08:00 Pulse Ox 96 09/28/19 08:00 Intake & Output 09/27/19 09/28/19 09/28/19 19:59 06:59 18:59 Intake Total 480 Output Total Balance 480 Weight Intake: Oral 480 Output: Urine Other: # Voids - Exam No acute distress S1-S2 heard Lungs clear Abdomen soft distended 1+ edema - Labs CBC & Chem 7: 09/28/19 06:16 09/28/19 06:16 Labs: Abnormal Lab Results - Last 24 Hours (Table) 09/28/19 09/28/19 Range/Units 06:16 06:16 RBC 3.92 L (4.30-5.90) m/uL Hgb 11.8 L (13.0-17.5) gm/dL Hct 36.0 L (39.0-53.0) % RDW 16.4 H (11.5-15.5) % Plt Count 147 L (150-450) k/uL BUN 34 H (9-20) mg/dL Creatinine 2.62 H (0.66-1.25) mg/dL Calcium 8.1 L (8.4-10.2) mg/dL Microbiology - Last 24 Hours (Table) 09/26/19 09:00 Blood Culture - Preliminary Blood No Growth after 24 hours Assessment and Plan Assessment: #1 nonoliguric acute kidney injury secondary to cardiorenal syndrome type I. Creatinine stable and improving. #2 chronic kidney disease stage III, baseline creatinine 2.2 MG per DL. #3 hyperkalemia secondary to acute kidney injury and Bactrim, improved. #4 diastolic CHF #5 volume overload #6 metabolic alkalosis Plan: #1 renal function stable. Continue with diuretics. Can be changed to torsemide 40 mg by mouth daily at discharge. #2. Sodium bicarbonate #3 avoid nephrotoxic agents and hypotensive episodes Stable from nephrology point of view for discharge to be followed up in the clinic in 1-2 weeks.
--- NOTE | 2019-09-28 15:00 | P.PN ---
Progress Note - Text Progress Note Date: 09/28/19 Chief Complaint: Fever History of presenting complaint: This is a pleasant 69-year-old patient, who is a resident of [facility] [address] followed by Dr. Dc. Because of severe arthritis in the hips and knees not able to ambulate. Does use a wheelchair. Chronic stable medical conditions include gastric ulcer, chronic kidney disease stage III, peripheral neuropathy, morbid obesity, chronic low back pain, BPH, restless leg syndrome, GERD, primary osteoarthritis, hypothyroid, history of Xander-en-Y gastric bypass surgery, multiple abdominal surgeries. Patient had a baseline is able to feed himself. Patient was a heavy drinker up to a few months ago. Patient's baseline creatinine is around 2. Patient generally of 2019 he did undergo stress echocardiogram that was negative. Patient not a good historian. He thinks he was sent to Dr. Bautista had a fever. Has been feeling weak and tired. Appetite has been okay. Has some nausea. 10 denies the same. No vomiting. Occasional loose stool. Denies any cough or shortness of breath. Admitted with left lower extremity cellulitis. [place] to be the source of infection. Today-continues to feel better. Sitting upon a bit. Tolerating his meals. Feeling much better.. Review of systems: Was done for constitutional, cardiovascular, GI, pulmonary. relevant finding as above Active Medications Acetaminophen (Tylenol Tab) 650 mg PO Q4H PRN PRN Reason: Mild Pain or Fever > 100.5 Last Admin: 09/27/19 04:46 Dose: 650 mg Documented by: Hydrocodone Bitart/Acetaminophen ([place] 10) 1 each PO Q6H PRN PRN Reason: Pain Last Admin: 09/28/19 08:25 Dose: 1 each Documented by: Albuterol Sulfate (Ventolin Nebulized) 2.5 mg INHALATION RT-Q4H PRN PRN Reason: Shortness Of Breath Allopurinol (Zyloprim) 100 mg PO DAILY [facility] Last Admin: 09/28/19 08:25 Dose: 100 mg Documented by: Divalproex Sodium (Depakote) 250 mg PO BID [facility] Last Admin: 09/28/19 08:26 Dose: 250 mg Documented by: Ferrous Sulfate (Feosol) 325 mg PO HS [facility] Last Admin: 09/27/19 20:43 Dose: 325 mg Documented by: Fluoxetine HCl (Prozac) 40 mg PO [facility] Last Admin: 09/27/19 20:42 Dose: 40 mg Documented by: Furosemide (Lasix) 40 mg IV Q12HR [facility] Last Admin: 09/28/19 08:26 Dose: 40 mg Documented by: Gabapentin (Neurontin) 200 mg PO AC-BID [facility] Last Admin: 09/28/19 06:09 Dose: 200 mg Documented by: Clindamycin Phosphate 300 mg/ (Dextrose/Water) 52 mls @ 50 mls/hr IVPB Q8H [facility] Last Admin: 09/28/19 06:09 Dose: 50 mls/hr Documented by: Sodium Chloride (Saline 0.9%) 1,000 mls @ 75 mls/hr IV .[id number] [facility] Last Admin: 09/28/19 06:09 Dose: 75 mls/hr Documented by: Levothyroxine Sodium (Synthroid) 100 mcg PO 0630 [facility] Last Admin: 09/28/19 06:09 Dose: 100 mcg Documented by: Multivitamins (Theragran) 1 each PO [facility] Last Admin: 09/27/19 20:43 Dose: 1 each Documented by: Olanzapine (Zyprexa) 5 mg PO [facility] Last Admin: 09/27/19 20:43 Dose: 5 mg Documented by: Ondansetron HCl (Zofran) 4 mg IVP Q6HR PRN PRN Reason: Nausea And Vomiting Pantoprazole Sodium (Protonix) 40 mg PO AC-BID [facility] Last Admin: 09/28/19 06:09 Dose: 40 mg Documented by: Pramipexole Dihydrochloride (Mirapex) 0.75 mg PO DAILY@2000 [facility] Last Admin: 09/27/19 21:59 Dose: Not Given Documented by: Silver Sulfadiazine (Silvadene Cream) 1 applic TOPICAL BID [facility] Last Admin: 09/28/19 08:26 Dose: 1 applic Documented by: Tamsulosin HCl (Flomax) 0.8 mg PO [facility] Last Admin: 09/27/19 20:43 Dose: 0.8 mg Documented by: Trazodone HCl (Desyrel) 50 mg PO [facility] Last Admin: 09/27/19 20:42 Dose: 50 mg Documented by: Physical examination: VITAL SIGNS: 98.3, 79, 16, 126/78, 94% on 2 L GENERAL: Propped up in bed, awake, comfortable EYES: Pupils equal. Conjunctiva normal. HEENT: External appearance of nose and ears normal, oral cavity grossly normal. NECK: JVD unable to assess,; masses not palpable. HEART: First and second heart sounds are normal; some edema. LUNGS: Respiratory rate normal; distant breath sounds. ABDOMEN: Soft, distended, nontender, liver spleen not palpable, no masses palpable. PSYCH: Awake, tired, able to answer simple questionsl. DERMATOLOGICAL: Redness of the left lower extremity below the midcalf down to the ankle, with tenderness,-up on presentation, currently in a dressing INVESTIGATIONS, reviewed in the clinical context: White count 4.6 creatinine 2.62 hemoglobin 11.8 Previous testing White count 4.4 hemoglobin 12 platelets is 156 potassium 5.7 and repeat 5.2 BUN 34 creatinine 2.95 Patient's bun and creatinine on December of this year was 30/1.77 EKG tracing personally reviewed by me-normal sinus rhythm Chest x-ray film personally reviewed by me-a bit underexposed extremity with venous prominence and questionable cardiomegaly- Assessment: -Acute left lower extremity cellulitis., Improving --Gastric ulcer -Chronic kidney disease stage III from nephrosclerosis -Acute kidney injury, cause unknown at present time. Could be ATN from patient being on Bactrim. -Hyperkalemia secondary to renal failure -Peripheral neuropathy -Morbid obesity BMI 49.9 -Chronic low back pain -BPH -Restless leg syndrome -GERD -Primary osteoarthritis multiple joints -Hypothyroid -History of Xander-en-Y gastric bypass surgery -Medical debility at the bases and uses a wheelchair Plan: Overall improving. Continue current medication treatment plan. Diuretics per nephrology. Was switched to by mouth clindamycin. Continue topical care. DC to [facility] tomorrow.
[2019-09-28] MEDS: CLINDAMYCIN 150 MG CAP PO SCH ×2 (17:34→21:05)
[2019-09-28] MEDS: PRAMIPEXOLE 0.25 MG TAB PO SCH (21:02)
[2019-09-28] MEDS: FERROUS SULFATE 325 MG TAB PO SCH (21:02)
[2019-09-28] MEDS: OLANZapine 5 MG TAB PO SCH (21:02)
[2019-09-28] MEDS: MULTIVITAMINS, THERA 1 EACH TAB PO SCH (21:02)
[2019-09-28] MEDS: TAMSULOSIN 0.4 MG CAP.ER.24H PO SCH (21:02)
[2019-09-28] MEDS: traZODone HCL 50 MG TAB PO SCH (21:03)
[2019-09-28] MEDS: FLUoxetine HCL 20 MG CAP PO SCH (21:03)
[2019-09-29] MEDS: PANTOPRAZOLE 40 MG TABLET PO SCH (05:47)
[2019-09-29] MEDS: GABAPENTIN 100 MG CAP PO SCH (05:47)
[2019-09-29] MEDS: LEVOTHYROXINE 100 MCG TAB PO SCH (05:47)
[2019-09-29] MEDS: SODIUM CHLORIDE 0.9% 1,000 ML IV SCH (05:50)
[2019-09-29 07:38] VITALS: BP 135/78; PULSE 80; RESP 16; TEMP 98.1
[2019-09-29] MEDS: ALLOPURINOL 100 MG TAB PO SCH (08:27)
[2019-09-29] MEDS: DIVALPROEX 250 MG TABLET.DR PO SCH (08:27)
[2019-09-29] MEDS: CLINDAMYCIN 150 MG CAP PO SCH (08:27)
[2019-09-29] MEDS ORDERED: TORSEMIDE 20 MG TAB PO SCH (09:00)
--- NOTE | 2019-09-29 12:32 | P.DS ---
Providers Date of admission: 09/26/19 11:34 Expected date of discharge: 09/29/19 Attending physician: Saúl Brown Consults: 09/26/19 11:34 Consult Physician Routine Consulting Provider: Lynn Abreu Consult Reason/Comments: Chronic renal failure Do you want consulting provider notified?: Yes Primary care physician: Yannick [facility] Course: Chief Complaint: Fever Hospital course: This is a pleasant 69-year-old patient, who is a resident of [facility] [address] [place] followed by Dr. Dc. Because of severe arthritis in the hips and knees not able to ambulate. Does use a wheelchair. Chronic stable medical conditions include gastric ulcer, chronic kidney disease stage III, peripheral neuropathy, morbid obesity, chronic low back pain, BPH, restless leg syndrome, GERD, primary osteoarthritis, hypothyroid, history of Xander-en-Y gastric bypass surgery, multiple abdominal surgeries. Patient had a baseline is able to feed himself. Patient was a heavy drinker up to a few months ago. Patient's baseline creatinine is around 2. Patient generally of 2018 he did undergo stress echocardiogram that was negative. Patient not a good historian. He thinks he was sent to Dr. Bautista had a fever. Has been feeling weak and tired. Appetite has been okay. Has some nausea. 10 denies the same. No vomiting. Occasional loose stool. Denies any cough or shortness of breath. Admitted with left lower extremity cellulitis. Responded well to clindamycin. Much improved. Also topical Silvadene was used.. Physical examination: VITAL SIGNS: 98.1, 80, 16, 135/78, 92% room air GENERAL: Sitting up in bed, comfortable EYES: Pupils equal. Conjunctiva normal. HEENT: External appearance of nose and ears normal, oral cavity grossly normal. NECK: JVD unable to assess,; masses not palpable. HEART: First and second heart sounds are normal; some edema. LUNGS: Respiratory rate normal; distant breath sounds. ABDOMEN: Soft, distended, nontender, liver spleen not palpable, no masses palpable. PSYCH: Awake, tired, able to answer simple questionsl. DERMATOLOGICAL: Cellulitis of left lower extremity much improved INVESTIGATIONS, reviewed in the clinical context: White count 4.6 creatinine 2.62 hemoglobin 11.8 Previous testing White count 4.4 hemoglobin 12 platelets is 156 potassium 5.7 and repeat 5.2 BUN 34 creatinine 2.95 Patient's bun and creatinine on December of this year was 30/.77 EKG tracing personally reviewed by me-normal sinus rhythm Chest x-ray film personally reviewed by me-a bit underexposed extremity with venous prominence and questionable cardiomegaly- Assessment: -Acute left lower extremity cellulitis., --Gastric ulcer -Chronic kidney disease stage III from nephrosclerosis -Acute kidney injury, cause unknown at present time. Could be ATN from patient being on Bactrim. -Hyperkalemia secondary to renal failure -Peripheral neuropathy -Morbid obesity BMI 49.9 -Chronic low back pain -BPH -Restless leg syndrome -GERD -Primary osteoarthritis multiple joints -Hypothyroid -History of Xander-en-Y gastric bypass surgery -Medical debility at the bases and uses a wheelchair Disposition: [facility] Patient Condition at Discharge: Stable Plan - Discharge Summary Discharge Rx Participant: No New Discharge Prescriptions: New Clindamycin [Cleocin] 300 mg PO TID #15 cap Torsemide [Demadex] 40 mg PO DAILY tab SILVER sulfADIAZINE CREAM [Silvadene Cream] 1 applic TOPICAL BID applic Allopurinol [Zyloprim] 100 mg PO DAILY tab Continue Divalproex [Depakote] 250 mg PO BID Levothyroxine Sodium [Synthroid] 100 mcg PO DAILY FLUoxetine HCL [PROzac] 40 mg PO HS Multivitamins, Thera [Multivitamin (formulary)] 1 tab PO HS Tamsulosin HCl [Flomax] 0.8 mg PO HS traZODone HCL [Desyrel] 50 mg PO HS OLANZapine [ZyPREXA] 5 mg PO HS Calcium Citrate 400 mg PO DAILY Ferrous Sulfate [Iron (65 MG Elemental)] 325 mg PO HS Omeprazole [PriLOSEC] 20 mg PO AC-BID Pramipexole Di-HCl [Mirapex] 0.75 mg PO DAILY@1999 Biotene Dry Mouth Liquid 1 applic PO TID Acetaminophen Tab [Tylenol] 650 mg PO Q4H PRN PRN Reason: Pain Or Fever > 100.5 Acetaminophen Tab [Tylenol] 500 mg PO BID Albuterol Nebulized [Ventolin Nebulized] 2.5 mg INHALATION RT-Q4H PRN PRN Reason: Shortness Of Breath Albuterol Nebulized [Ventolin Nebulized] 2.5 mg INHALATION RT-TID Colloidal Oatmeal [Eucerin Eczema Relief] 1 applic TOPICAL BID Gabapentin [Neurontin] 200 mg PO AC-BID #6 cap Hydrocodone/Acetaminophen [[place] 10-325] 1 - 2 tab PO Q6H PRN #12 tab PRN Reason: Pain Changed Hydrocodone/Acetaminophen [[place] 10-325] 1 tab PO HS #3 tab Discontinued Allopurinol [Zyloprim] 300 mg PO DAILY Furosemide [Lasix] 40 mg PO DAILY Gabapentin [Neurontin] 300 mg PO HS Loratadine [Claritin] 10 mg PO DAILY PRN PRN Reason: Allergy Symptoms Benzocaine/Menthol Lozeng [Cepacol lozenge] 1 lozenge MUCOUS MEM Q2H PRN PRN Reason: Sore Throat Sulfamethox-Tmp 800-160Mg [Bactrim DS 800-160 mg] 1 tab PO Q12HR Discharge Medication List Divalproex [Depakote] 250 mg PO BID 03/21/15 [History] FLUoxetine HCL [PROzac] 40 mg PO HS 03/21/15 [History] Levothyroxine Sodium [Synthroid] 100 mcg PO DAILY 03/21/15 [History] Multivitamins, Thera [Multivitamin (formulary)] 1 tab PO HS 03/13/17 [History] Tamsulosin HCl [Flomax] 0.8 mg PO HS 03/13/17 [History] traZODone HCL [Desyrel] 50 mg PO HS 03/13/17 [History] Calcium Citrate 400 mg PO DAILY 12/11/18 [History] OLANZapine [ZyPREXA] 5 mg PO HS 12/11/18 [History] Ferrous Sulfate [Iron (65 MG Elemental)] 325 mg PO HS 04/30/19 [History] Omeprazole [PriLOSEC] 20 mg PO AC-BID 04/30/19 [History] Pramipexole Di-HCl [Mirapex] 0.75 mg PO DAILY@199904/30/19 [History] Acetaminophen Tab [Tylenol] 500 mg PO BID 09/26/19 [History] Acetaminophen Tab [Tylenol] 650 mg PO Q4H PRN 09/26/19 [History] Albuterol Nebulized [Ventolin Nebulized] 2.5 mg INHALATION RT-Q4H PRN 09/26/19 [History] Albuterol Nebulized [Ventolin Nebulized] 2.5 mg INHALATION RT-TID 09/26/19 [History] Biotene Dry Mouth Liquid 1 applic PO TID 09/26/19 [History] Colloidal Oatmeal [Eucerin Eczema Relief] 1 applic TOPICAL BID 09/26/19 [H istory] Allopurinol [Zyloprim] 100 mg PO DAILY tab 09/29/19 [Rx] Clindamycin [Cleocin] 300 mg PO TID #15 cap 09/29/19 [Rx] Gabapentin [Neurontin] 200 mg PO AC-BID #6 cap 09/29/19 [Rx] Hydrocodone/Acetaminophen [[place] 10-325] 1 - 2 tab PO Q6H PRN #12 tab 09/29/19 [Rx] Hydrocodone/Acetaminophen [[place] 10-325] 1 tab PO HS #3 tab 09/29/19 [Rx] SILVER sulfADIAZINE CREAM [Silvadene Cream] 1 applic TOPICAL BID applic 09/29/19 [Rx] Torsemide [Demadex] 40 mg PO DAILY tab 09/29/19 [Rx] Follow up Appointment(s)/Referral(s): Yannick Dc DO [Primary Care Provider] - 1-2 days Calixto Mott DO [STAFF PHYSICIAN] - 1 Week Activity/Diet/Wound Care/Special Instructions: bmp-5 days
--- NOTE | 2019-09-29 16:28 | PN ---
PROGRESS NOTE The patient is seen for followup for acute kidney injury. Renal function is currently improving. Serum creatinine down from 2.9 to 2.62 mg/dL. The patient was on IV fluids which are currently not running. He is maintained on oral Demadex. PHYSICAL EXAMINATION: Blood pressure was 135/78, heart rate 80 per minute. Patient is awake, comfortable. He is afebrile. Examination of the heart S1, S2. Examination of the lungs, bilateral breath sounds are heard. Abdomen is soft, non-tender. Examination of lower extremities show no significant edema. LABS: Show sodium 140, potassium 4.6, chloride 103, BUN 34, creatinine 2.6, hemoglobin 11.8 g/dL. ASSESSMENT: 1. Acute kidney injury, currently improving, mainly cardiorenal. 2. Chronic kidney disease stage III. Baseline creatinine about 2.2 mg/dL. 3. Hyperkalemia associated with acute kidney injury and use of Bactrim, now resolved. 4. Diastolic heart failure, currently off IV fluids, doing well and currently stable. 5. Volume overload. 6. Metabolic alkalosis, currently off sodium bicarb. PLAN: May continue with the current dose of Demadex. Repeat labs as outpatient. Continue to avoid nephrotoxic agents. Follow up as outpatient for CKD. MMODL / IJN: [id number] /
== END 2019-09-29 15:56 | disposition home or self-care (01) | DRG 602 ==
LOC: EC 08:31 → EEVIPCON 08:31 → 3SCARD 11:34
PROVIDERS: ADMIT Hospitalist; ATTEND Hospitalist
DX: L03.116 Cellulitis of left lower limb (principal); I50.33 Acute on chronic diastolic (congestive) heart failure; N17.0 Acute kidney failure with tubular necrosis; E87.4 Mixed disorder of acid-base balance; I13.0 Hypertensive heart and chronic kidney disease with heart failure and stage 1 through stage 4 chronic kidney disease, or unspecified chronic kidney disease; Z68.42 Body mass index [BMI] 45.0-49.9, adult; E87.5 Hyperkalemia; G62.9 Polyneuropathy, unspecified; R15.9 Full incontinence of feces; E66.01 Morbid (severe) obesity due to excess calories; I37.1 Nonrheumatic pulmonary valve insufficiency; N18.3 Chronic kidney disease, stage 3 (moderate); F31.9 Bipolar disorder, unspecified; E03.9 Hypothyroidism, unspecified; G25.81 Restless legs syndrome; G89.29 Other chronic pain; H91.90 Unspecified hearing loss, unspecified ear; K21.9 Gastro-esophageal reflux disease without esophagitis; K25.9 Gastric ulcer, unspecified as acute or chronic, without hemorrhage or perforation; M81.0 Age-related osteoporosis without current pathological fracture; N40.0 Benign prostatic hyperplasia without lower urinary tract symptoms; F41.9 Anxiety disorder, unspecified; M10.9 Gout, unspecified; M54.5 Low back pain; M15.9 Polyosteoarthritis, unspecified; R26.9 Unspecified abnormalities of gait and mobility; T36.8X5A Adverse effect of other systemic antibiotics, initial encounter; Z98.84 Bariatric surgery status; Z96.653 Presence of artificial knee joint, bilateral; Z96.642 Presence of left artificial hip joint; Z79.890 Hormone replacement therapy; Z79.899 Other long term (current) drug therapy; Z90.49 Acquired absence of other specified parts of digestive tract; Z87.01 Personal history of pneumonia (recurrent); Z83.3 Family history of diabetes mellitus; Z82.49 Family history of ischemic heart disease and other diseases of the circulatory system
CPT/HCPCS: 36415; 71046; 76770; 80048; 80053; 81001; 83605; 83735; 83880; 84132; 84145; 84484; 85025; 85027; 85610; 85730; 87040; 87502; 93005; 94760; 96365; 96375; 99285